=== PATIENT | female | born 1980 | race Hispanic/Latino ===

== ENCOUNTER 2017-12-01 11:30 | Observation (INO) | payer BC ==
[~2017-12-01] VITALS: Ht 160 cm; Wt 66.2 kg
[~2017-12-01 11:30] MED LIST: ATIVAN1 MG PO; BENADRYL25 M1 PO; BENTYL10 MG PO; CARAFATE1 GM/10 ML PO; LIPITOR20 MG PO; LSNP2.5 PO; NEURONTIN300 MG PO; NEXIUM40 MG PO; OLANZAPINE5 MG PO; PANTOPRAZOLE SO40 MG PO; PROMETHAZINE HC25 M1 PO; SYNTHROID125 MCG PO; TOPROL XL25 MG PO; TYLENOL WITH C1 EACH PO; ULTRAM50 MG PO; XOPENEX HFA15 GM INH; ZANAFLEX4 MG PO
[2017-12-01] MEDS ORDERED: SODIUM CHLORIDE 0.9% 1000ML 1,000 ML IV STA ×2 (11:38→15:22)
[2017-12-01] MEDS ORDERED: PROMETHAZINE 12.5MG/ NACL 0.9% 12.5 MG/50 ML BAG IV ONE (11:45)
[2017-12-01 12:31] LABS: BILIRUBIN,URINE 1+ (NEGATIVE); CLARITY,URINE CLOUDY (CLEAR); COLOR,URINE YELLOW (YELLOW); KETONES,URINE TRACE (NEGATIVE); LEUKOCYTE ESTERASE ,URINE NEGATIVE (NEGATIVE); NITRITE,URINE NEGATIVE (NEGATIVE); URINE UROBILINOGEN 0.2 mg/dL (0.2 - 1)
[2017-12-01 12:39] LABS: PROTEIN,URINE DIPSTICK 2+ (NEGATIVE)
[2017-12-01 12:44] LABS: EPITHELIAL CELLS,URINE MODERATE /LPF
[2017-12-01 12:46] LABS: BACTERIA,URINE FEW /HPF
[2017-12-01 12:55] LABS: AMPHETAMINES SCREEN,URINE NEGATIVE (NEGATIVE); BENZODIAZEPINES SCREEN,URINE POSITIVE (NEGATIVE); PHENCYCLIDINE SCREEN,URINE NEGATIVE (NEGATIVE)
[2017-12-01 13:04] LABS: BASOPHILS % 0.3 % (0.0-1.0); EOSINOPHILS % 0.2 % (0.0-6.0); HEMATOCRIT 42.8 % (34.2-44.1); HEMOGLOBIN 14.6 g/dL (12.0-16.0); LYMPHOCYTES # (AUTO) 4.1 (1.0-3.2); LYMPHOCYTES % 29.8 % (18.0-39.1); MEAN CORPUSCULAR HEMOGLOBIN 30.4 pg (28-32); MEAN CORPUSCULAR HGB CONC 34.1 g/dL (31-35); MEAN CORPUSCULAR VOLUME 89.2 fL (81-99); MONOCYTES # (AUTO) 1.4 (0.2-0.8); NEUTROPHILS # (AUTO) 8.1 (2.1-6.9); PLATELET COUNT 397 x10e3/uL (140-360); RED CELL DISTRIBUTION WIDTH 16.9 % (11.7-14.4)
[2017-12-01] MEDS ORDERED: ONDANSETRON HCL INJ 2 MG/ML VIAL IV STA (13:30)
[2017-12-01] MEDS ORDERED: CEFTRIAXONE SOD 1 GM VIAL IM ONE (14:00)
[2017-12-01] MEDS ORDERED: MORPHINE SULFATE 5 MG/ML VIAL IV PRN ×2 (14:00→16:30)
[2017-12-01] MEDS ORDERED: MORPHINE SULFATE 2 MG/ML SYR IV NR ×2 (14:15→16:45)
--- NOTE | 2017-12-01 14:47 | Diagnostic Imaging Report ---
Exam: Head CT without contrast History: Nausea, vomiting, trauma, fall Comparison studies: Brain MRI 08/02/2016. Technique: Axial images were obtained from the skull base to the vertex. Coronal and sagittal images reconstructed from the axial data. Intravenous contrast: None Findings: Scalp: No abnormalities. Bones: No fractures, blastic or lytic lesions. Brain sulci: Appropriate for age. Ventricles: Normal in size. No hydrocephalus. Incidental 1.9 x 2.1 x 2.4 cm (SI x AP x TV) cavum veli interpositi cyst without mass effect. Extra-axial spaces: Mildly prominent retrocerebellar space of CSF density is compatible with an arachnoid cyst. Parenchyma: No abnormal densities. No masses, acute hemorrhage, acute or chronic vascular insults. Sellar/suprasellar region: No abnormalities. Craniocervical junction: Patent foramen magnum. No Chiari one malformation. IMPRESSION: 1. No acute abnormalities. 2. 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 Signed by: Dr. David Javed M.D. on 12/01/2017 2:44 PM
[2017-12-01 15:25] LABS: ALANINE AMINOTRANSFERASE 13 IU/L (0-55); ALBUMIN 4.5 g/dL (3.5-5.0); ALBUMIN/GLOBULIN RATIO 1.3 (0.8-2.0); ALKALINE PHOSPHATASE 74 IU/L (40-150); AMYLASE 61 U/L (25-125); ANION GAP 18.1 mmol/L (8-16); BLOOD UREA NITROGEN 12 mg/dL (7-26); BUN/CREATININE RATIO 17 (6-25); CALCIUM 8.6 mg/dL (8.4-10.2); CARBON DIOXIDE 26 mmol/L (22-29); CHLORIDE 95 mmol/L (98-107); CREATINE KINASE 45 IU/L (29-168); EST GLOMERULAR FILTRATION RATE > 60 ML/MIN (60-); GLUCOSE 97 mg/dL (74-118); LIPASE 36 U/L (8-78); POTASSIUM 3.1 mmol/L (3.5-5.1); SODIUM 136 mmol/L (136-145)
[2017-12-01] MEDS: PROMETHAZINE 12.5MG/ NACL 0.9% 12.5 MG/50 ML BAG IV PRN ×2 (15:45→23:15)
[2017-12-01 15:51] LABS: THYROID STIMULATING HORMONE 2.538 uIU/mL (0.350-4.940); TROPONIN I 0.004 ng/mL (0-0.300)
--- NOTE | 2017-12-01 16:10 | Diagnostic Imaging Report ---
PROCEDURE:X-RAY ABDOMEN - KUB COMPARISON:[facility], CT, CT ABDOMEN/PELVIS W, 09/12/2017, 19:42. INDICATIONS:ABDOMINAL PAIN FINDINGS: Nonobstructive bowel gas pattern with mild amount of retained stool. No dilated, air-filled loops of bowel. No abnormal calcifications. Metallic clips in the pelvis from tubal ligation. No acute bony abnormalities. CONCLUSION: Nonobstructive bowel gas pattern with mild amount of retained stool. Aníbal Curtis M.D. Dictated by: Aníbal Curtis M.D. on 12/01/2017 at 16:19 Electronically approved by: Aníbal Curtis M.D. on 12/01/2017 at 16:19
[2017-12-01] MEDS ORDERED: PROMETHAZINE 12.5MG/ NACL 0.9% 12.5 MG/50 ML BAG IV PRN (16:30)
[2017-12-01] MEDS ORDERED: DIATRIZOATE MEGL/DIATRIZOA SOD 30 ML BTL PO ONE (16:41)
--- NOTE | 2017-12-01 18:16 | Diagnostic Imaging Report ---
PROCEDURE: CT ABDOMEN AND PELVIS WITHOUT CONTRAST TECHNIQUE: The abdomen and pelvis were scanned utilizing a multidetector helical scanner from the diaphragm to the lesser trochanter after the oral administration of water. No IV contrast was administered due to lack of IV access Coronal and sagittal multiplanar reformations were obtained. COMPARISON: [facility], CT, CT ABDOMEN/PELVIS W, 09/12/2017, 19:42. INDICATIONS: ABDOMINAL PAIN, NAUSEA, history of gastric cancer FINDINGS: ABSENCE OF INTRAVENOUS CONTRAST DECREASES SENSITIVITY FOR DETECTION OF FOCAL LESIONS AND VASCULAR PATHOLOGY. LOWER THORAX: Lung bases are clear. HEPATOBILIARY: Borderline low attenuation of the right hepatic lobe, likely representing geographic steatosis. No focal hepatic lesions. No biliary ductal dilatation. Gallbladder is unremarkable. SPLEEN: The spleen is not visualized and likely absent. PANCREAS: No focal masses or ductal dilatation. ADRENALS: No adrenal nodules. KIDNEYS/URETERS: Questionable punctate, nonobstructing calculus in the interpolar region of the left kidney (series 2, image 31). No other renal or any ureteral calculi. No hydronephrosis or obstruction. Stable 9 mm cortical angiomyolipoma in the superior to mid aspect of the right kidney (series 2, image 37). PELVIC ORGANS/BLADDER: Bladder is moderately distended, without focal lesions. Uterus is unremarkable. Bilateral tubal ligation clips. PERITONEUM / RETROPERITONEUM: No free air or fluid. LYMPH NODES: No lymphadenopathy. VESSELS: Unremarkable. GI TRACT: Stable postoperative changes in the stomach fundus and cecum/ascending colon. No bowel dilation or evidence of obstruction. Moderate to large amount of retained stool in the colon, particularly in the descending and sigmoid colon. BONES AND SOFT TISSUES: No acute bony abnormalities. No aggressive lytic lesions. Soft tissues are unremarkable. IMPRESSION: 1. Exam limited by lack of intravenous contrast. No acute abdominopelvic abnormalities, within the limitations of the study. No bowel dilation or evidence of obstruction. 2. Stable postoperative changes in the gastric fundus and ascending colon/cecum. 3. 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 Aníbal Curtis M.D. Dictated by: Aínbal Curtis M.D. on 12/01/2017 at 18:25 Electronically approved by: Aníbal Curtis M.D. on 12/01/2017 at 18:25
[2017-12-01] MEDS: SODIUM CHLORIDE 0.9% 1000ML 1,000 ML IV SCH (18:59)
[2017-12-01] MEDS ORDERED: KLONOPIN0.5 MG PO ×2 (19:45)
[2017-12-01] MEDS ORDERED: KLONOPIN1 MG PO (19:45)
[2017-12-01] MEDS ORDERED: METOPROLOL TARTRATE 25 MG TAB PO ONE (20:00)
[2017-12-01 23:00] VITALS: BP 117/76
[2017-12-01 23:25] VITALS: BP 117/76
[2017-12-01 23:43] VITALS: BP 117/76
[2017-12-02] MEDS ORDERED: PANTOPRAZOLE 40 MG 10ML VIAL IV STA (00:16)
[2017-12-02] MEDS ORDERED: LORAZEPAM 1 MG TAB PO PRN (00:30)
[2017-12-02] MEDS ORDERED: ACETAMINOPHEN/CODEINE 300MG - 30MG TAB PO PRN (00:30)
[2017-12-02] MEDS: HYDROMORPHONE 2MG/ML INJ IV PRN ×5 (00:53→22:29)
[2017-12-02] MEDS: PANTOPRAZOLE INJ 40 MG in SODIUM CHLORIDE 0.9% 50ML 50 ML IV SCH ×5 (01:36→21:52)
[2017-12-02 05:00] VITALS: BP 126/55
[2017-12-02] MEDS ORDERED: PANTOPRAZOLE 40 MG 10ML VIAL ONE (05:45)
[2017-12-02] MEDS: SODIUM CHLORIDE 0.9% 1000ML 1,000 ML IV SCH ×3 (05:54→15:06)
[2017-12-02] MEDS: PROMETHAZINE 12.5MG/ NACL 0.9% 12.5 MG/50 ML BAG IV PRN ×3 (05:55→18:12)
[2017-12-02] MEDS: LEVOTHYROXINE SODIUM 75 MCG TAB PO SCH (05:55)
[2017-12-02 07:01] LABS: BASOPHILS # (AUTO) 0.1 (0.0-0.1); BASOPHILS % 0.4 % (0.0-1.0); EOSINOPHILS # (AUTO) 0.1 (0.0-0.4); EOSINOPHILS % 0.4 % (0.0-6.0); HEMOGLOBIN 12.7 g/dL (12.0-16.0); LYMPHOCYTES % 40.2 % (18.0-39.1); MEAN CORPUSCULAR HEMOGLOBIN 30.5 pg (28-32); MEAN CORPUSCULAR HGB CONC 32.6 g/dL (31-35); MONOCYTES # (AUTO) 1.6 (0.2-0.8); MONOCYTES % 9.4 % (4.4-11.3); NEUTROPHILS # (AUTO) 8.5 (2.1-6.9); NEUTROPHILS % 48.9 % (38.7-80.0); PLATELET COUNT 306 x10e3/uL (140-360); RED BLOOD COUNT 4.17 x10e6/uL (3.6-5.1); RED CELL DISTRIBUTION WIDTH 17.2 % (11.7-14.4)
[2017-12-02 07:23] LABS: ANION GAP 16.9 mmol/L (8-16); BLOOD UREA NITROGEN 7 mg/dL (7-26); BUN/CREATININE RATIO 11 (6-25); CALCIUM 8.3 mg/dL (8.4-10.2); CARBON DIOXIDE 28 mmol/L (22-29); CHLORIDE 97 mmol/L (98-107); CREATININE, SERUM 0.61 mg/dL (0.57-1.11); EST GLOMERULAR FILTRATION RATE > 60 ML/MIN (60-); GLUCOSE 100 mg/dL (74-118); MEAN CORPUSCULAR VOLUME 93.5 fL (81-99); SODIUM 139 mmol/L (136-145)
[2017-12-02 07:24] LABS: POTASSIUM 2.9 mmol/L (3.5-5.1)
[2017-12-02] MEDS: SUCRALFATE 1 GM/10 ML SUSP PO SCH ×3 (07:30→16:30)
[2017-12-02 07:38] VITALS: BP 122/82
[2017-12-02] MEDS: GABAPENTIN 300 MG CAP PO SCH ×3 (08:21→21:00)
[2017-12-02] MEDS: CLONAZEPAM 0.5 MG TAB PO SCH ×2 (08:21→17:50)
[2017-12-02] MEDS: DICYCLOMINE HCL 10 MG CAP PO SCH ×4 (08:21→22:30)
[2017-12-02] MEDS: OLANZAPINE 5 MG TAB PO SCH ×2 (08:22→17:50)
[2017-12-02] MEDS: METOPROLOL SUCCINATE 25 MG TAB XL PO SCH ×2 (08:22→17:50)
[2017-12-02] MEDS: TIZANIDINE HCL 4 MG TAB PO SCH ×3 (08:23→21:00)
[2017-12-02] MEDS ORDERED: POTASSIUM CHLORIDE 20MEQ/100ML 100 ML IV ONE (08:30)
[2017-12-02] MEDS ORDERED: PANTOPRAZOLE SOD 40 MG TABEC PO SCH (09:00)
[2017-12-02] MEDS ORDERED: POTASSIUM CHLORIDE IV SCH (09:30)
[2017-12-02] MEDS ORDERED: SODIUM CHLORIDE 0.9% IV SCH (09:30)
[2017-12-02 11:20] VITALS: BP 128/80
[2017-12-02 12:00] VITALS: BP 128/80
[2017-12-02] MEDS ORDERED: POTASSIUM CHLORIDE 10 MEQ TABCR PO SCH (14:00)
[2017-12-02] MEDS: POTASSIUM CHLORIDE 10 MEQ TABCR PO SCH ×2 (15:05→17:50)
[2017-12-02 15:33] VITALS: BP 139/79
[2017-12-02 20:00] VITALS: BP 102/67
[2017-12-02] MEDS: CLONAZEPAM 1 MG TAB PO SCH (21:00)
[2017-12-02] MEDS: ATORVASTATIN 20 MG TAB PO SCH ×2 (21:00→22:30)
[2017-12-02] MEDS: DIPHENHYDRAMINE HCL 25 MG CAP PO SCH (21:00)
[2017-12-03] VITALS (7 sets, daily range): BP systolic 98–136; BP diastolic 42–86
[2017-12-03] MEDS: SODIUM CHLORIDE 0.9% 1000ML 1,000 ML IV SCH ×3 (00:23→16:33)
[2017-12-03] MEDS: POTASSIUM CHLORIDE 10 MEQ TABCR PO SCH ×2 (01:14→06:24)
[2017-12-03] MEDS: PROMETHAZINE 12.5MG/ NACL 0.9% 12.5 MG/50 ML BAG IV PRN ×2 (01:23→07:19)
[2017-12-03] MEDS: HYDROMORPHONE 2MG/ML INJ IV PRN ×3 (02:43→10:45)
[2017-12-03] MEDS: PANTOPRAZOLE INJ 40 MG in SODIUM CHLORIDE 0.9% 50ML 50 ML IV SCH ×5 (04:25→21:30)
[2017-12-03] MEDS: LEVOTHYROXINE SODIUM 75 MCG TAB PO SCH (06:24)
[2017-12-03 06:48] LABS: BASOPHILS % 0.3 % (0.0-1.0); EOSINOPHILS # (AUTO) 0.3 (0.0-0.4); EOSINOPHILS % 1.7 % (0.0-6.0); HEMATOCRIT 31.8 % (34.2-44.1); HEMOGLOBIN 10.3 g/dL (12.0-16.0); LYMPHOCYTES # (AUTO) 4.2 (1.0-3.2); LYMPHOCYTES % 28.4 % (18.0-39.1); MEAN CORPUSCULAR HEMOGLOBIN 30.2 pg (28-32); MEAN CORPUSCULAR HGB CONC 32.4 g/dL (31-35); MEAN CORPUSCULAR VOLUME 93.3 fL (81-99); MONOCYTES # (AUTO) 1.3 (0.2-0.8); MONOCYTES % 8.9 % (4.4-11.3); NEUTROPHILS # (AUTO) 8.9 (2.1-6.9); NEUTROPHILS % 60.1 % (38.7-80.0); PLATELET COUNT 308 x10e3/uL (140-360); RED BLOOD COUNT 3.41 x10e6/uL (3.6-5.1); RED CELL DISTRIBUTION WIDTH 17.7 % (11.7-14.4)
[2017-12-03 07:12] LABS: ANION GAP 13.1 mmol/L (8-16); BLOOD UREA NITROGEN < 5 mg/dL (7-26); CARBON DIOXIDE 26 mmol/L (22-29); CHLORIDE 103 mmol/L (98-107); CREATININE, SERUM 0.58 mg/dL (0.57-1.11); EST GLOMERULAR FILTRATION RATE > 60 ML/MIN (60-); GLUCOSE 100 mg/dL (74-118); POTASSIUM 3.1 mmol/L (3.5-5.1); SODIUM 139 mmol/L (136-145)
[2017-12-03 07:16] LABS: BILIRUBIN,URINE NEGATIVE (NEGATIVE); CLARITY,URINE CLEAR (CLEAR); COLOR,URINE YELLOW (YELLOW); KETONES,URINE NEGATIVE (NEGATIVE); LEUKOCYTE ESTERASE ,URINE NEGATIVE (NEGATIVE); NITRITE,URINE NEGATIVE (NEGATIVE); PROTEIN,URINE DIPSTICK NEGATIVE (NEGATIVE); URINE UROBILINOGEN 0.2 mg/dL (0.2 - 1)
[2017-12-03 07:21] LABS: BUN/CREATININE RATIO 9 (6-25)
[2017-12-03 07:51] LABS: BACTERIA,URINE FEW /HPF; EPITHELIAL CELLS,URINE FEW /LPF; WBC,URINE (MAN) 0-5 /HPF (0-5)
[2017-12-03] MEDS: SUCRALFATE 1 GM/10 ML SUSP PO SCH ×3 (08:37→16:25)
[2017-12-03] MEDS: DICYCLOMINE HCL 10 MG CAP PO SCH ×3 (08:37→21:00)
[2017-12-03] MEDS: GABAPENTIN 300 MG CAP PO SCH ×3 (08:37→21:00)
[2017-12-03] MEDS: CLONAZEPAM 0.5 MG TAB PO SCH ×2 (08:37→17:00)
[2017-12-03] MEDS: OLANZAPINE 5 MG TAB PO SCH ×2 (08:38→17:41)
[2017-12-03] MEDS: METOPROLOL SUCCINATE 25 MG TAB XL PO SCH ×2 (08:38→17:00)
[2017-12-03] MEDS ORDERED: COLLAGENASE OINTMENT 30 GM TUBE TP SCH (09:00)
[2017-12-03] MEDS: TIZANIDINE HCL 4 MG TAB PO SCH ×3 (10:18→21:01)
[2017-12-03] MEDS ORDERED: HYDROMORPHONE 1MG/1ML INJ IV PRN (13:00)
[2017-12-03] MEDS ORDERED: POTASSIUM CHLORIDE 20 MEQ TAB CR PO NR ×2 (13:30→15:00)
[2017-12-03] MEDS ORDERED: HYDROMORPHONE 2MG/ML INJ IV PRN (13:30)
[2017-12-03] MEDS: DIPHENHYDRAMINE HCL 25 MG CAP PO SCH (21:00)
[2017-12-03] MEDS: CLONAZEPAM 1 MG TAB PO SCH (21:00)
[2017-12-03] MEDS: ATORVASTATIN 20 MG TAB PO SCH (21:01)
[2017-12-04] VITALS: BP 101/56
[2017-12-04] MEDS: PANTOPRAZOLE INJ 40 MG in SODIUM CHLORIDE 0.9% 50ML 50 ML IV SCH (02:30)
[2017-12-04 06:14] LABS: BASOPHILS # (AUTO) 0.1 (0.0-0.1); BASOPHILS % 0.6 % (0.0-1.0); EOSINOPHILS # (AUTO) 0.6 (0.0-0.4); EOSINOPHILS % 4.2 % (0.0-6.0); HEMATOCRIT 38.1 % (34.2-44.1); LYMPHOCYTES # (AUTO) 6.8 (1.0-3.2); LYMPHOCYTES % 49.7 % (18.0-39.1); MEAN CORPUSCULAR HEMOGLOBIN 30.1 pg (28-32); MEAN CORPUSCULAR HGB CONC 31.5 g/dL (31-35); MEAN CORPUSCULAR VOLUME 95.5 fL (81-99); MONOCYTES # (AUTO) 1.1 (0.2-0.8); NEUTROPHILS # (AUTO) 5.1 (2.1-6.9); PLATELET COUNT 312 x10e3/uL (140-360); RED BLOOD COUNT 3.99 x10e6/uL (3.6-5.1)
[2017-12-04] MEDS: LEVOTHYROXINE SODIUM 75 MCG TAB PO SCH (06:29)
[2017-12-04] MEDS: SUCRALFATE 1 GM/10 ML SUSP PO SCH (07:30)
[2017-12-04 08:00] VITALS: BP 139/85
[2017-12-04 09:43] LABS: ANISOCYTOSIS SLIGHT; EOSINOPHILS % (MANUAL) 3 % (0-7); LYMPHOCYTES % (MANUAL) 47 % (19-48); MONOCYTES % (MANUAL) 7 % (3.4-9.0); NEUTROPHILS % (MANUAL) 43 % (40-74); PLATELET ESTIMATE ADEQUATE; PLATELET MORPHOLOGY COMMENT NORMAL; RBC MORPHOLOGY COMMENT NORMAL
== END 2017-12-04 08:14 | disposition home or self-care (01) ==
LOC: ER 11:30 → ERHOLD 20:22 → IMCU 21:42
DX: K52.9 Noninfective gastroenteritis and colitis, unspecified (principal); E86.0 Dehydration; R00.0 Tachycardia, unspecified; Z85.020 Personal history of malignant carcinoid tumor of stomach; Z85.71 Personal history of Hodgkin lymphoma; E03.9 Hypothyroidism, unspecified; J45.909 Unspecified asthma, uncomplicated; E87.6 Hypokalemia; Z88.1 Allergy status to other antibiotic agents; Z88.8 Allergy status to other drugs, medicaments and biological substances; Z88.2 Allergy status to sulfonamides
CPT/HCPCS: 36415 ×4; 70450; 74000; 74176; 80048 ×2; 80053; 80307; 81001 ×2; 82150; 82550; 82553; 83690; 83880; 84443; 84484; 84702; 85025 ×4; 87086 ×2; 93005; 96360; 96374; 97602; 99284; G0378 ×4; J0696; J1170 ×2; J2270; J2550 ×3; J3480; J7030 ×3; J7050; 74018

== ENCOUNTER 2017-12-08 07:58 | Observation (INO) | payer BC ==
[~2017-12-08] VITALS: Ht 160 cm; Wt 64.0 kg
[~2017-12-08 07:58] MED LIST changes: +KLONOPIN0.5 MG PO; +KLONOPIN1 MG PO
--- OUTSIDE RECORDS SUMMARY | 2017-12-08 08:00 | XMS REPORT ---
[facility] Address Unknown Phone Unavailable Care Team Providers Care Graphics Manager Name Role Phone SONNY SCHRADER Unavailable Unavailable OSORIOCHARLES CHISHOLM Unavailable Unavailable Problems This patient has no known problems. Allergies, Adverse Reactions, Alerts This patient has no known allergies or adverse reactions. Medications This patient has no known medications. Results Test Description Test Time Test Comments Text Results Atomic Results Result Comments CT ABDOMEN/PELVIS WO [place] [address] Patient Name: TEAGAN CARDOSO MR #: [id number] : 1980 Age/Sex: 37/F Req #: [id number] Adm Physician: Ordered by: GUS BATEMAN IMAGERY ANALYST Report # : [id number] Location: ER Room/Bed: Procedure: [id number] CT/CT ABDOMEN/PELVIS WO Exam Date: Exam Time : REPORT STATUS: Signed PROCEDURE: CT ABDOMEN AND PELVIS WITHOUT CONTRAST TECHNIQUE: The abdomen and pelvis were scanned utilizing a multidetector helical scanner from the diaphragm to the lesser trochanter after the oral administration of water. No IV contrast was administered due to lack of IV access Coronal and sagittal multiplanar reformations were obtained. COMPARISON: [facility], CT, CT ABDOMEN/PELVIS W, 09/12/2017, 19:42. INDICATIONS: ABDOMINAL PAIN, NAUSEA, history of gastric cancer FINDINGS: ABSENCE OF INTRAVENOUS CONTRAST DECREASES SENSITIVITY FOR DETECTION OF FOCAL LESIONS AND VASCULAR PATHOLOGY. LOWER THORAX: Lung bases are clear. HEPATOBILIARY: Borderline low attenuation of the right hepatic lobe, likely representing geographic steatosis. No focal hepatic lesions. No biliary ductal dilatation. Gallbladder is unremarkable. SPLEEN: The spleen is not visualized and likely absent. PANCREAS: No focal masses or ductal dilatation. ADRENALS: No adrenal nodules. KIDNEYS/URETERS: Questionable punctate, nonobstructing calculus in the interpolar region of the left kidney (series 2, image 31). No other renal or any ureteral calculi. No hydronephrosis or obstruction. Stable 9 mm cortical angiomyolipoma in the superior to mid aspect of the right kidney (series 2, image 37). PELVIC ORGANS/BLADDER: Bladder is moderately distended, without focal lesions. Uterus is unremarkable. Bilateral tubal ligation clips. PERITONEUM / RETROPERITONEUM: No free air or fluid. LYMPH NODES: No lymphadenopathy. VESSELS: Unremarkable. GI TRACT: Stable postoperative changes in the stomach fundus and cecum/ ascending colon. No bowel dilation or evidence of obstruction. Moderate to large amount of retained stool in the colon, particularly in the descending and sigmoid colon. BONES AND SOFT TISSUES: No acute bony abnormalities. No aggressive lytic lesions. Soft tissues are unremarkable. IMPRESSION : 1. Exam limited by lack of intravenous contrast. No acute abdominopelvic abnormalities, within the limitations of the study. No bowel dilation or evidence of obstruction. 2. Stable postoperative changes in the gastric fundus and ascending colon/cecum. 3. 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 Aníbal Figueroa M.D. Dictated by: Aníbal Figueroa M.D. on 12/01/2017 at 18:25 Electronically approved by: Aníbal Figueroa M.D. on 12/01/2017 at 18:25 Dictated By: ANÍBAL FIGUEROA MD 24 Transcribed By: EMI on 12/01/171824 COPY TO: GUS BATEMAN IMAGERY ANALYST ABDOMEN-1[facility] ([place] [address] Patient Name: TEAGAN CARDOSO MR #: [id number] : 1980 Age/Sex: 37/F Req #: [id number] Adm Physician: Ordered by: GUS BATEMAN IMAGERY ANALYST Report # : [id number] Location: ER Room/Bed: Procedure: [id number] -[id number] DX/ABDOMEN-1VIEW (KUB) Exam Date: 12/01/17 Exam Time: 1530 REPORT STATUS: Signed PROCEDURE: X-RAY ABDOMEN - KUB COMPARISON: [facility], CT, CT ABDOMEN/PELVIS W, 2016, 19:42. INDICATIONS: ABDOMINAL PAIN FINDINGS: Nonobstructive bowel gas pattern with mild amount of retained stool. No dilated, air-filled loops of bowel. No abnormal calcifications. Metallic clips in the pelvis from tubal ligation. No acute bony abnormalities. CONCLUSION: Nonobstructive bowel gas pattern with mild amount of retained stool. Aníbal Figueroa M.D. Dictated by: Aníbal Figueroa M.D. on 12/01/2017 at 16:19 Electronically approved by: Aníbal Figueroa M.D. on 12/01/2017 at 16:19 Dictated By: ANÍBAL FIGUEROA MD 18 Transcribed By: EMI on 12/01/17 1619 COPY TO: GUS BATEMAN IMAGERY ANALYST CT BRAIN WO [place] [address] Patient Name: TEAGAN CARDOSO MR #: [id number] : 1980 Age/Sex: 37/F Req #: [id number] Adm Physician: Ordered by: GUS BATEMAN IMAGERY ANALYST Report #: [id number] Location: ER Room/Bed: Procedure: [id number] CT/CT BRAIN WO Exam Date: 12/01/17 Exam Time: 1420 REPORT STATUS: Signed Exam: Head CT without contrast History: Nausea , vomiting, trauma, fall Comparison studies: Brain MRI 08/02/2016. Technique: Axial images were obtained from the skull base to the vertex. Coronal and sagittal images reconstructed from the axial data. Intravenous contrast: None Findings: Scalp: No abnormalities. Bones: No fractures, blastic or lytic lesions. Brain sulci: Appropriate for age. Ventricles: Normal in size. No hydrocephalus. Incidental 1.9 x 2.1 x 2.4 cm (SI x AP x TV) cavum veli interpositi cyst without mass effect. Extra- axial spaces: Mildly prominent retrocerebellar space of CSF density is compatible with an arachnoid cyst. Parenchyma: No abnormal densities. No masses, acute hemorrhage, acute or chronic vascular insults. Sellar/suprasellar region: No abnormalities. Craniocervical junction: Patent foramen magnum. No Chiari one malformation. IMPRESSION: 1. No acute abnormalities. 2. 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 Signed by: Dr. Hermelinda Alegre M.D. on 12/01/2017 2:44 PM Dictated By: HERMELINDA ALEGRE MD 1444 Transcribed By: KARMA on 12/01/17 1447 COPY TO: GUS BATEMAN NP CT ABDOMEN/PELVIS [place] [address] Patient Name: TEAGAN CARDOSO MR #: [id number] : 1980 Age/Sex: 37/F Req #: [id number] Adm Physician: CHARLES OSORIO MD Ordered by: DAHLIA MURRAY MD Report #: [id number] Location: MED/SURG Room/Bed: [facility] ____ Procedure: [id number] CT/CT ABDOMEN/PELVIS W Exam Date: 09/12/17 Exam Time: 1999 REPORT STATUS: Signed EXAM: CT Abdomen and Pelvis WITH contrast INDICATION: Abdominal pain, nausea, vomiting, history of gastric cancer COMPARISON: 05/24/2016 TECHNIQUE: Abdomen and pelvis were scanned utilizing a multidetector helical scanner from the lung base to the pubic symphysis after administration of IV contrast. Coronal and sagittal reformations were obtained. Routine protocol was performed. Scan was performed when during portal venous phase. IV CONTRAST: 100 mL of Isovue-300 ORAL CONTRAST: None RADIATION DOSE: Total DLP: 246.32 mGy*cm Estimated effective dose: (DLP x 0.015 x size factor) mSv COMPLICATIONS: None FINDINGS: LINES and TUBES: None. LOWER THORAX: Unremarkable HEPATOBILIARY: No focal hepatic lesions. No biliary ductal dilation. GALLBLADDER: No radio-opaque stones or sludge. No wall thickening. SPLEEN : No splenomegaly. PANCREAS: No focal masses or ductal dilatation. ADRENALS: No adrenal nodules KIDNEYS/URETERS: Kidneys enhance symmetrically. No hydronephrosis. No cystic or solid mass lesions. No stones. GI TRACT: No abnormal distention, wall thickening, or evidence of bowel obstruction. Postsurgical changes noted at the gastric fundus as well as the right colon at the cecum. Appendix is not clearly identified. There is however no fat stranding or adenopathy in the right lower quadrant to suggest appendicitis. PELVIC ORGANS/BLADDER: Unremarkable. LYMPH NODES: No lymphadenopathy. VESSELS: Unremarkable. PERITONEUM / RETROPERITONEUM: No free air or fluid. BONES: Unremarkable. SOFT TISSUES: Unremarkable. IMPRESSION: 1. No evidence of residual, recurrent disease or metastasis. 2. Unobstructive bowel gas pattern Signed by: Dr. Nigel Townsend M.D. on 09/12/2017 9:09 PM Dictated By: NIGEL MICHAEL MD 08 Transcribed By: KARMA on 09/12/172108 COPY TO: DAHLIA MURRAY MD CHEST 2 VIEWS [place] [address] Patient Name: TEAGAN CARDOSO MR #: [id number] : 1980 Age/Sex: 37/F Req #: [id number] Adm Physician: CHARLES OSORIO MD Ordered by: ANNY FALLON MD Report #: [id number] Location: MED/SURG Room/Bed: [facility] _ Procedure: [id number] DX/CHEST 2 VIEWS Exam Date: 09/12/17 Exam Time: 1250 REPORT STATUS: Signed EXAM: XR CHEST 2 VIEWS DATE: 09/12/2017 11:36 AM INDICATION: Pneumonia COMPARISON : 09/08/2017 FINDINGS: Lines and Tubes: Right PICC with tip overlying distal SVC. Heart and Mediastinum: Stable cardiomegaly. Pulmonary arteries prominent. Calcified left hilar lymph nodes. Chain suture overlies lingula. Lungs and Pleura: Calcification overlies left lung base. Ill-defined opacities in the lung bases could represent atelectasis, edema, or pneumonia. Bones and Soft Tissues: No acute findings. IMPRESSION: 1. Overall stable exam. Signed by: Dr. Frantz Lucia MD on 09/12/2017 1:30 PM Dictated By: FRANTZ LUCIA MD 29 Transcribed By: KARMA on 09/12/171329 COPY TO: ANNY FALLON MD CHEST 2 VIEWS [facility] [address], [place] [address] Patient Name: TEAGAN CARDOSO MR #: [id number] : 1980 Age/Sex: 37/F Req #: [id number] Adm Physician: CHARLES OSORIO MD Ordered by: TARAS ENGLISH MD Report #: [id number] Location: MED/SURG2 Room/Bed: [facility] ___ Procedure: [id number] DX/CHEST 2 VIEWS Exam Date: Exam Time: REPORT STATUS: Signed EXAMINATION: CHEST 2 VIEWS INDICATION: Possible right lower lobe pneumonia. COMPARISON: 03/11/2016 FINDINGS: TUBES and LINES: Right upper extremity PICC line with distal tip at the right atrium. LUNGS: Lungs are well inflated. Large calcified granuloma noted in the left lung base. Segmental resection of the left lung noted just lateral to the cardiac silhouette. There is no evidence of pneumonia or pulmonary edema. PLEURA : No pleural effusion or pneumothorax. HEART AND MEDIASTINUM: The cardiomediastinal silhouette is unremarkable. There are atherosclerotic calcifications within the aorta. BONES AND SOFT TISSUES: No acute osseous lesion. Soft tissues are unremarkable. UPPER ABDOMEN: No free air under the diaphragm. IMPRESSION: No acute thoracic abnormality. Signed by: Dr. Nigel Townsend M.D. on 09/08/2017 4:50 AM Dictated By: NIGEL MICHAEL MD 045 COPY TO: TARAS ENGLISH MD CHEST XRAY LINE PLACEMENT [facility] [address] [place] [address] Patient Name: TEAGAN CARDOSO MR #: [id number] : 1980 Age/Sex: 37/F Req #: [id number] Adm Physician: CHARLES OSORIO MD Ordered by: CHARLES OSORIO MD Report #: [id number] Location: [facility]/SURG2 Room/Bed: [facility] Procedure: [id number] DX/CHEST XRAY LINE PLACEMENT Exam Date: Exam Time: REPORT STATUS: Signed EXAMINATION: CHEST XRAY LINE PLACEMENT INDICATION: Repositioning of PICC line COMPARISON: 03/11/2016 FINDINGS: TUBES and LINES: Right upper extremity PICC line with distal tip at the right atriocaval junction. LUNGS: Lungs are well inflated. Large calcified granuloma noted in the left lung base. Segmental resection of the left lung noted just lateral to the cardiac silhouette. There is no evidence of pneumonia or pulmonary edema. PLEURA: No pleural effusion or pneumothorax. HEART AND MEDIASTINUM: The cardiomediastinal silhouette is unremarkable. There are atherosclerotic calcifications within the aorta. BONES AND SOFT TISSUES: No acute osseous lesion. Soft tissues are unremarkable. UPPER ABDOMEN: No free air under the diaphragm. IMPRESSION: No acute thoracic abnormality. Repositioning of right upper extremity PICC line at the atriocaval junction Signed by: Dr. Nigel Townsend M.D. on 09/08/2017 4:53 AM Dictated By: NIGEL MICHAEL MD Transcribed By: KARMA on 09/08/170 COPY TO: CHARLES OSORIO MD CT CHEST [facility] [address] [place] [address] Patient Name: TEAGAN CARDOSO MR #: [id number] : 1980 Age/Sex: 37/F Req #: [id number] [facility] Physician: Ordered by: TARAS ENGLISH MD Report #: [id number] Location: ER Room/Bed: Procedure: [id number] CT/CT CHEST WO Exam Date: 09/07/17 Exam Time: 1753 REPORT STATUS: Signed EXAM: CT Chest WITHOUT contrast 09/07/2017 4:51 PM INDICATION: Unexplained hypoxemia. Chest pain. COMPARISON: 12/01/2014. TECHNIQUE: Chest was scanned utilizing a multidetector helical scanner from the lung apex through the level of the adrenal glands without administration of IV contrast. Absence of intravenous contrast decreases sensitivity for detection of lymphadenopathy and vascular pathology. Coronal and sagittal reformations were obtained. Routine protocol was performed. IV CONTRAST: None RADIATION DOSE: Total DLP: 421.35 mGy*cm Estimated effective dose: (DLP x 0.014 x size factor) mSv COMPLICATIONS: None FINDINGS: LINES/ TUBES: None. LUNGS AND AIRWAYS: Patchy and ill-defined nodular groundglass densities throughout the right middle and lower lobes, with more focal patchy density in the right lower lobe medially as seen on coronal images 50 and 51. There is a 7 mm groundglass nodule in the right upper lobe laterally on coronal image 51. There is a 4 mm pleural-based nodule in the left lung base on coronal images 61. There is a 6.2 mm groundglass nodule in the left lower lobe posteriorly on coronal image 75. Metallic densities in the lingula again observed, most suggestive of prior lung biopsy or wedge resection. PLEURA: Small right and trace left pleural effusions. HEART AND MEDIASTINUM: The thyroid gland is normal. 2.1 cm calcification abutting the left aspect of the pulmonary trunk, possibly calcified lymph node, stable. No mediastinal, hilar or axillary lymphadenopathy. The heart is normal in size.. There is no pericardial effusion. Atherosclerotic calcifications of the thoracic aorta without aneurysmal dilatation. Mild multivessel coronary artery calcification. UPPER ABDOMEN: Limited non-contrast views of the upper abdomen show prior gastric surgery. Mild thickening of the left adrenal gland with punctate calcification. The adrenal glands are normal. BONES: The visualized bony thorax is within normal limits. SOFT TISSUES: Surgical clips in the lower left midneck. IMPRESSION: 1. Ill-defined nodular groundglass densities throughout the right middle and lower lobes are nonspecific, however, may reflect pneumonitis. 2. Small right and trace left pleural effusions. 3. Right upper and left lower lobe groundglass nodules. Consider follow-up CT chest nodule protocol in 12 months to document resolution/stability. Signed by: Dr. Shankar Noriega M.D. on 2016 6:42 PM Dictated By: ANJALI NORIEGA MD, MD 41 Transcribed By: KARMA on 09/07/171841 COPY TO: TARAS ENGLISH MD CHEST SINGLE (PORTABLE) [place] [address] Patient Name: TEAGAN CARDOSO MR #: [id number] : 1980 Age/Sex: 37/F Req #: [id number] Adm Physician: Ordered by: TARAS ENGLISH MD Report #: [id number] Location: ER Room/Bed: Procedure: [id number] DX/CHEST SINGLE (PORTABLE) Exam Date: 09/07/17 Exam Time: 0900 REPORT STATUS: Signed PROCEDURE: CHEST SINGLE (PORTABLE) COMPARISON: 08/22/2016. INDICATIONS: EPIGASTRIC PAIN FINDINGS: The lungs are well-inflated. No focal airspace consolidation, pleural effusion, or pneumothorax. Postsurgical changes of left hemithorax include radiopaque suture material and volume loss. Calcified left hilar lymph node and dystrophic calcification projecting over the left lung base/left upper quadrant of the abdomen are unchanged. Right hemithorax is clear. Stable cardiomediastinal contour. The regional skeletal structures are intact. CONCLUSION: No acute cardiopulmonary abnormality. Interval removal of right upper extremity PICC with otherwise stable appearance of the chest relative to 08/22/2016. Dictated by: Hermelinda Jasmine M.D. on 09/07/2017 at 9:44 Electronically approved by: Hermelinda Jasmine M.D. on 09/07/2017 at 9:44 Dictated By : HERMELINDA JASMINE MD Transcribed By: EMI on 09/07/17943 COPY TO: TARAS ENGLISH MD
--- OUTSIDE RECORDS SUMMARY | 2017-12-08 08:00 | XMS REPORT | Continuity of Care Document ---
Author Author [facility] Organization [facility] Address [address] [place] [address] Phone Unavailable Care Team Providers Care Senior Manager Quality Assurance Name Role Phone CHARLES OSORIO MD PCP Insurance Providers Guarantor RdBrigitte Address [address] [place] [address] Email [facility] Policy Number [id number] Subscriber's Name Nj Cardoso Relationship 01 Group Number [id number] Group Name [facility] Effective Date 17 Advance Directives Directive Response Recorded Date/Time Does the patient have an advance directive? No 12/01/17 11:54pm If yes, is advance directive on file with [facility]? No 12/01/17 11:54pm If not on file with [facility] will patient provide a copy? No 12/01/17 11:54pm Do you have a Directive to Physician? No 12/01/17 12:25pm Do you have a Medical Power of Mill Tender Second Operator? No 12/01/17 12:25pm Do you have an out of hospital Do Not Resuscitate Order? No 12/01/17 12:25pm Do you have any special needs we should be aware of? No 12/01/17 12:25pm Do you have a support person here with you today? Yes 12/01/17 12:25pm Did patient receive Notice of Privacy Practices? Yes 12/01/17 12:25pm Did patient receive patient rights and responsibilities? Yes 12/01/17 12:25pm Chief Complaint and Reason for Visit Chief Complaint DEHYDRATION, DIASTOLIC HEART FAILURE, TACHYCARDIA Reason for Visit Headache Problems Medical Problem Onset Date Status Anemia 11/30/2014 Acute Ankle sprain Unknown Acute Coronary artery calcification of mentasta artery 12/03/2014 Acute Dehydration Unknown Diastolic heart failure Unknown Headache Unknown Acute Symptomatic anemia 11/30/2014 Acute Tachycardia Unknown Urinary tract infection Unknown Acute Vomiting Unknown Medications Current Home Medications Medication Dose Units Route Directions Days Qty Instructions Start Date Acetaminophen With Codeine (Tylenol With Codeine #3 Tablet) 1 Each Tablet 300 Mg Oral Every 6 Hours Ac And Hs as needed for Po 10 Days 12/05/14 Atorvastatin Calcium (Lipitor) 20 Mg Tablet 80 Mg Oral Bedtime 30 Cap 12/05/14 Clonazepam (Klonopin) 0.5 Mg Tablet 0.5 Mg Oral Every Morning Clonazepam (Klonopin) 0.5 Mg Tablet 0.5 Mg Oral Daily At 1700 Clonazepam (Klonopin) 1 Mg Tablet 1.5 Mg Oral Bedtime Dicyclomine Hcl (Bentyl) 10 Mg Capsule 20 Mg Oral Three Times A Day Diphenhydramine Hcl (Benadryl) 25 Mg Capsule 50 Mg Oral Bedtime Gabapentin (Neurontin) 300 Mg Capsule 600 Mg Oral Three Times A Day Levalbuterol Tartrate (Xopenex Hfa) 15 Gm Hfa.aer.ad Inhalation As Needed Levothyroxine Sodium (Synthroid) 125 Mcg Tab 150 Mcg Oral Daily 30 Tab Lorazepam (Ativan) 1 Mg Tablet 1 Mg Oral Three Times A Day as needed for Anxiety Metoprolol Succinate (Toprol Xl) 25 Mg Tab.er.24h 25 Mg Oral Twice A Day 30 Tab Olanzapine 5 Mg Tablet 5 Mg Oral Twice A Day 30 Tab Pantoprazole Sodium (Protonix) 40 Mg Tablet.dr 40 Mg Oral Twice A Day Promethazine Hcl 25 Mg Tablet 25 Mg Oral Every 6 Hours as needed for Nausea And Vomiting Sucralfate (Carafate) 1 Gm/10 Ml Oral.susp 1 Gm Oral Before Meals Tizanidine Hcl (Zanaflex) 4 Mg Tablet 4 Mg Oral Three Times A Day Past Home Medications Medication Directions Ordered Status Diphenhydramine Hcl (Benadryl) 25 Mg Capsule, 25 Mg Oral Daily Discontinued Esomeprazole Magnesium (Nexium) 40 Mg Capsule.dr, 40 Mg Oral Daily At 1700 Discontinued Lsnp2.5 2.5 Mg Tab, 2.5 Mg Oral Bedtime 12/05/14 Discontinued Tramadol Hcl (Ultram) 50 Mg Tablet, 50 Mg Oral Three Times A Day as needed for Pain Discontinued Tramadol Hcl (Ultram) 50 Mg Tablet, 50 Mg Oral Every 8 Hours as needed for Abdominal Pain Discontinued Social History Social History Problem Response Recorded Date/Time Onset Date Status Hx Psychiatric Problems No 12/01/2017 11:54pm Not Applicable Not Applicable Hx Eating Disorder No 12/01/2017 11:54pm Not Applicable Not Applicable Hx Substance Use Disorder No 12/01/2017 11:54pm Not Applicable Not Applicable Hx Depression No 12/01/2017 11:54pm Not Applicable Not Applicable Hx Alcohol Use No 12/01/2017 11:54pm Not Applicable Not Applicable Hx Substance Use Treatment No 12/01/2017 11:54pm Not Applicable Not Applicable Hx Physical Abuse No 12/01/2017 11:54pm Not Applicable Not Applicable Smoking Status Start Date Stop Date Never Smoker Hospital Discharge Instructions No hospital discharge instruction information available. Plan of Care Discharge Date 12/04/17 8:14am Disposition HOME, SELF-CARE Instructions/Education Provided Dehydration - Adult Vomiting - Adult Prescriptions See Medication Section Additional Instructions/Education TAKE MEDICATION ORDERED FOLLOW UP WITH PCP ON Thursday12/07/17 NEED BLOOD WORK Functional Status Query Response Date Recorded Assistive Devices None December 01, 2017 11:43pm Ambulation Ability Minimum Assistance December 01, 2017 11:43pm Toileting Ability Minimum Assistance December 01, 2017 11:43pm Allergies, Adverse Reactions, Alerts Allergen Type Severity Reaction Status Last Updated Sulfa (Sulfonamide Antibiotics) Allergy Intermediate DECREASED PLATELETS Active 09/07/17 Prochlorperazine Allergy Intermediate TACHYCARDIA Active 09/07/17 Clindamycin Allergy Mild Active 09/08/17 Paroxetine Allergy Unknown Active 09/07/17 Sertraline Allergy Unknown Active 09/07/17 Cyclobenzaprine Allergy Unknown Active 09/07/17 Metoclopramide Allergy Mild Hives, rash, anxiety Active 09/07/17 Ondansetron Allergy Intermediate TACHYCARDIA Active 09/07/17 Levofloxacin Allergy Intermediate TACHYCARDIA Active 09/07/17 Immunizations No immunization information available. Vital Signs Acute Vital Signs Vital Response Date/Time Temperature (Fahrenheit) 97.2 degrees F (97.6 - 99.5) 12/04/2017 12:00am Pulse Pulse Rate (adult) 94 bpm (60 - 90) 12/04/2017 12:00am Respiratory Rate 17 bpm (12 - 24) 12/04/2017 12:00am Blood Pressure 101/56 mm Hg 12/04/2017 12:00am Height 5 ft 3 in 12/01/2017 11:34am Weight 146 lb 12/03/2017 12:27am Body Mass Index 25.9 kg/m^2 12/03/2017 12:27am Results Laboratory Results Test Name Result Units Flags Reference Collection Date/Time Result Date/ Time Comments Differential Total Cells Counted 100 09/12/2017 6:30am 09/12/2017 8 :32am Neutrophils % (Manual) 69 % 40-74 09/12/2017 6:30am 09/12/2017 8:32am Band Neutrophils % 2 % 09/12/2017 6:30am 09/12/2017 8:32am Lymphocytes % (Manual) 24 % 19-48 09/12/2017 6:30am 09/12/2017 8:32am Monocytes % (Manual) 4 % 3.4-9.0 09/12/2017 6:30am 09/12/2017 8:32am Basophils % (Manual) 1 % 0-1.5 09/12/2017 6:30am 09/12/2017 8:32am Platelet Estimate MARKEDLY INCREASED 09/12/2017 6:30am 09/12/2017 8 :32am Platelet Morphology Comment FEW LARGE 09/12/2017 6:30am 09/12/2017 8:32am Anisocytosis MODERATE 09/12/2017 6:30am 09/12/2017 8:32am Red Cell Morphology Comment ABNORMAL 09/12/2017 6:30am 09/12/2017 8 :32am Percent Reticulocyte Count 2.2 % 0.8-2.2 09/09/2017 5:50am 09/09/2017 6 :01am Prothrombin Time 12.3 seconds 11.9-14.5 09/07/2017 2:55pm 09/07/2017 3: 22pm Prothromb Time International Ratio 0.87 09/07/2017 2:55pm 2016 3:22pm Oral Anticoagulant Therapy INR Values: 1. Low Intensity Therapy 1.5 - 2.0 2. Moderate Intensity Therapy 2.0 - 3.0 3. High Intensity Therapy(1) 2.5 - 3.5 4. High Intensity Therapy(2) 3.0 - 4.0 5. Panic Value INR > 5.0 Activated Partial Thromboplast Time 29.5 seconds 23.8-35.5 09/07/2017 2: 55pm 09/07/2017 3:22pm D-Dimer Quantitative (PE/DVT) 0.45 ug/mLFEU 0.00-0.45 09/07/2017 2:55pm 09/07/2017 3:25pm As with all in vitro diagnostic tests, the test results should be interpreted by the physician in conjunction with clinical findings and other test results. Test results are reported in NEW D-dimer units(ug/mLFEU). Urine Amorphous Sediment RARE FEW 09/07/2017 8:45am 09/07/2017 9: 33am Urine Test NEGATIVE NEGATIVE 09/07/2017 8:45am 09/07/2017 5 :11pm Hemoglobin A1c Percent 5.9 % 4.0-7.0 09/08/2017 1:35pm 09/08/2017 1: 49pm Magnesium Level 2.6 MG/DL H 1.3-2.1 09/11/2017 9:44pm 09/11/2017 10: 24pm Iron Level 14 ug/dL L 50-170 09/09/2017 5:50am 09/09/2017 6:29am Total Iron Binding Capacity 498 ug/dL H 261-478 09/09/2017 5:50am 2016 6:29am Percent Iron Saturation 3 % L 15-50 09/09/2017 5:50am 09/09/2017 6:29am Transferrin 356 mg/dL 180-382 09/09/2017 5:50am 09/09/2017 6:29am Ferritin 12.97 ng/mL 4.63-204.00 09/09/2017 5:50am 09/09/2017 6:53am Vitamin B12 Level 315 pg/mL 213-816 09/09/2017 5:50am 09/09/2017 7: 05am Folate 15.4 ng/mL 7.0-15.4 09/09/2017 5:50am 09/09/2017 7:05am Free Thyroxine Index 2.0016 1.4-3.8 09/08/2017 12:30am 09/08/2017 1: 26am Thyroxine (T4) 6.55 ug/dL 4.5-10.9 09/08/2017 12:30am 09/08/2017 1: 26am Our current method for Total T4 is not recommended for use as the only marker for evaluating patients for thyroid disorders. Triiodothyronine (T3) Uptake 30.56 % 22.50-37.00 09/08/2017 12:30am 05/2017 1:26am Arterial Blood pH 7.43 H 7.31-7.41 09/07/2017 4:34pm 09/07/2017 4: 55pm Arterial Blood Partial Pressure CO2 42 mmHg 41-51 09/07/2017 4:34pm 04/2017 4:55pm Arterial Blood Partial Pressure O2 61 mmHg L 80-105 09/07/2017 4:34pm 4:55pm Arterial Blood HCO3 28 mmol/L 23-28 09/07/2017 4:34pm 09/07/2017 4: 55pm Arterial Blood Base Excess 4.0 mmol/L H -2 - 3 09/07/2017 4:34pm 2016 4:55pm Arterial Blood Oxygen Saturation 92.0 % L 95-98 09/07/2017 4:34pm 2016 4:55pm Free Triiodothyronine 2.8 pg/mL 2.0-4.4 09/08/2017 7:37am 09/09/2017 6: 48am Performed at: - [facility] [id number] Greenskeeper Supervisor: Kirit Mckee MD, Phone: [phone] Thyroid Peroxidase Antibodies 12 IU/mL 0-34 09/08/2017 7:37am 2016 6:48am Urine Vanillylmandelic Acid mg/L 6.1 mg/L Undefined 09/08/2017 4:30pm 09/14/2017 1:42pm Urine Vanillylmandelic Acid 24 Hour 6.7 mg/24 hr 0.0-7.5 09/08/2017 4: 30pm 09/14/2017 1:42pm This test was developed and its performance characteristics determined by [facility]. It has not been cleared or approved by the Food and Drug Administration. Performed at: [address] [id number] Greenskeeper Supervisor: Kirk Zaldivar MD, Phone: [phone] Urine Metanephrines 24 Hour 462 09/08/2017 4:30pm 09/22/2017 7: 56am Reference Range: 45 - 290 ug/24 hr (Hypertensive) >17 years 11 months: 35 - 460 Urine Normetanephrine 24 Hour 1267 09/08/2017 4:30pm 09/22/2017 7: 56am Reference Range: 82 - 500 ug/24 hr (Hypertensive) >17 years 11 months: 110 - 1050 Urine Total Metanephrines 24 Hour 420 ug/L 09/08/2017 4:30pm 2016 7:56am Reference Range:Undefined Urine Normetanephrine 1152 ug/L 09/08/2017 4:30pm 09/22/2017 7: 56am Reference Range:Undefined Testing performed by: [address] [id number] Dir. Kirk Zaldivar MD Urine 5-HIAA 24 Hour 4.0 mg/24 hr 0.0-14.9 09/08/2017 4:30pm 2016 1:42pm This test was developed and its performance characteristics determined by [facility]. It has not been cleared or approved by the Food and Drug Administration. Performed at: [address] [id number] Greenskeeper Supervisor: Kirk Zaldivar MD, Phone: [phone] Urine 5-HIAA 3.6 mg/L Undefined 09/08/2017 4:30pm 09/14/2017 1:42pm White Blood Count 13.65 x10e3/uL H 4.8-10.8 12/04/2017 6:00am 2017 6:26am Red Blood Count 3.99 x10e6/uL 3.6-5.1 12/04/2017 6:00am 12/04/2017 6: 26am Hemoglobin 12.0 g/dL 12.0-16.0 12/04/2017 6:00am 12/04/2017 6:26am Results called to NIKKI Self RN at 0626 on 12/04/17 by Masoud Madrigal. RB OK. Hematocrit 38.1 % 34.2-44.1 12/04/2017 6:00am 12/04/2017 6:26am Mean Corpuscular Volume 95.5 fL 81-99 12/04/2017 6:00am 12/04/2017 6: 26am Mean Corpuscular Hemoglobin 30.1 pg 28-32 12/04/2017 6:00am 12/04/2017 6:26am Mean Corpuscular Hemoglobin Concent 31.5 g/dL 31-35 12/04/2017 6:00am 12/04/2017 6:26am Red Cell Distribution Width 18.0 % H 11.7-14.4 12/04/2017 6:00am 2017 6:26am Platelet Count 312 x10e3/uL 140-360 12/04/2017 6:00am 12/04/2017 6: 26am Neutrophils (%) (Auto) 37.0 % L 38.7-80.0 12/04/2017 6:00am 12/04/2017 6 :26am Lymphocytes (%) (Auto) 49.7 % H 18.0-39.1 12/04/2017 6:00am 12/04/2017 6 :26am Monocytes (%) (Auto) 8.0 % 4.4-11.3 12/04/2017 6:00am 12/04/2017 6: 26am Eosinophils (%) (Auto) 4.2 % 0.0-6.0 12/04/2017 6:00am 12/04/2017 6: 26am Basophils (%) (Auto) 0.6 % 0.0-1.0 12/04/2017 6:00am 12/04/2017 6:26am IM GRANULOCYTES % 0.5 % 0.0-1.0 12/04/2017 6:00am 12/04/2017 6:26am Neutrophils # (Auto) 5.1 2.1-6.9 12/04/2017 6:00am 12/04/2017 6:26am Lymphocytes # (Auto) 6.8 H 1.0-3.2 12/04/2017 6:00am 12/04/2017 6: 26am Monocytes # (Auto) 1.1 H 0.2-0.8 12/04/2017 6:00am 12/04/2017 6:26am Eosinophils # (Auto) 0.6 H 0.0-0.4 12/04/2017 6:00am 12/04/2017 6: 26am Basophils # (Auto) 0.1 0.0-0.1 12/04/2017 6:00am 12/04/2017 6:26am Absolute Immature Granulocyte (auto 0.07 x10e3/uL 0-0.1 12/04/2017 6: 00am 12/04/2017 6:26am Urine Color YELLOW YELLOW 12/03/2017 6:48am 12/03/2017 7:18am Urine Clarity CLEAR CLEAR 12/03/2017 6:48am 12/03/2017 7:18am Urine Specific [place] 1.010 1.010-1.025 12/03/2017 6:48am 2017 7:18am Urine pH 6.5 5 - 7 12/03/2017 6:48am 12/03/2017 7:18am Urine Leukocyte Esterase NEGATIVE NEGATIVE 12/03/2017 6:48am 2017 7:18am Urine Nitrite NEGATIVE NEGATIVE 12/03/2017 6:48am 12/03/2017 7:18am Urine Protein NEGATIVE NEGATIVE 12/03/2017 6:48am 12/03/2017 7:18am Urine Glucose (UA) NEGATIVE NEGATIVE 12/03/2017 6:48am 12/03/2017 7: 18am Urine Ketones NEGATIVE NEGATIVE 12/03/2017 6:48am 12/03/2017 7:18am Urine Opiates Screen POSITIVE H NEGATIVE 12/01/2017 11:47am 2017 12:55pm This test provides only a screen. Positive results should be repeated by a confirmatory test. Urine Barbiturates Screen NEGATIVE NEGATIVE 12/01/2017 11:47am 2017 12:55pm Urine Phencyclidine Screen NEGATIVE NEGATIVE 12/01/2017 11:47am 12/01 12:55pm Urine Amphetamines Screen NEGATIVE NEGATIVE 12/01/2017 11:47am 2017 12:55pm Urine Benzodiazepines Screen POSITIVE H NEGATIVE 12/01/2017 11:47am 12:55pm This test provides only a screen. Positive results should be repeated by a confirmatory test. Urine Cocaine Screen NEGATIVE NEGATIVE 12/01/2017 11:47am 12/01/2017 12:55pm Urine Cannabinoids Screen NEGATIVE NEGATIVE 12/01/2017 11:47am 2017 12:55pm THESE RESULTS ARE FOR MEDICAL TREATMENT ONLY *THIS REPORT CONTAINS UNCONFIRMED SCREENING RESULTS* POSITIVE RESULTS WILL BE CONFIRMED BY REFERENCE LAB UPON REQUEST CUT-OFF DRUG CLASS CONCENTRATION ng/mL Amphetamines 1000 Methamphetamines 1000 Cocaine 300 Opiate 300 Phencyclidine 25 Cannabinoid 50 Barbiturates 300 Benzodiazepine 300 Methadone 300 Urine Urobilinogen 0.2 mg/dL 0.2 - 1 12/03/2017 6:48am 12/03/2017 7: 18am Urine Bilirubin NEGATIVE NEGATIVE 12/03/2017 6:48am 12/03/2017 7: 18am Urine Blood 3+ H NEGATIVE 12/03/2017 6:48am 12/03/2017 7:18am Urine WBC 0-5 /HPF 0-5 12/03/2017 6:48am 12/03/2017 7:51am Urine RBC 11-20 /HPF H 0-5 12/03/2017 6:48am 12/03/2017 7:51am Urine Bacteria FEW /HPF NONE 12/03/2017 6:48am 12/03/2017 7:51am Urine Epithelial Cells FEW /LPF NONE 12/03/2017 6:48am 12/03/2017 7: 51am Sodium Level 139 mmol/L 136-145 12/03/2017 6:15am 12/03/2017 7:21am Potassium Level 3.1 mmol/L L 3.5-5.1 12/03/2017 6:15am 12/03/2017 7: 21am Chloride Level 103 mmol/L 98-107 12/03/2017 6:15am 12/03/2017 7:21am Carbon Dioxide Level 26 mmol/L 22-29 12/03/2017 6:15am 12/03/2017 7: 21am Anion Gap 13.1 mmol/L 8-16 12/03/2017 6:15am 12/03/2017 7:21am Blood Urea Nitrogen < 5 mg/dL L 7-26 12/03/2017 6:1512/03/2017 7: 21am Creatinine 0.58 mg/dL 0.57-1.11 12/03/2017 6:15am 12/03/2017 7:21am BUN/Creatinine Ratio 9 6-25 12/03/2017 6:15am 12/03/2017 7:21am Estimat Glomerular Filtration Rate > 60 ML/MIN 60- 12/03/2017 6:15am 7:21am Ranges were taken from the National Kidney Disease Education Program and the National Kid[employer] Foundation literature. Reference ranges: 60 or greater: Normal 16-59 (for 3 consecutive months): Chronic kidney disease 15 or less: Kidney failure Glucose Level 100 mg/dL 74-118 12/03/2017 6:15am 12/03/2017 7:21am Calcium Level 8.0 mg/dL L 8.4-10.2 12/03/2017 6:15am 12/03/2017 7:21am Total Bilirubin 0.5 mg/dL 0.2-1.2 12/01/2017 2:58pm 12/01/2017 3:25pm Aspartate Amino Transf (AST/SGOT) 18 IU/L 5-34 12/01/2017 2:58pm 2017 3:25pm Alanine Aminotransferase (ALT/SGPT) 13 IU/L 0-55 12/01/2017 2:58pm 3:25pm Total Protein 8.1 g/dL 6.5-8.1 12/01/2017 2:58pm 12/01/2017 3:25pm Albumin 4.5 g/dL 3.5-5.0 12/01/2017 2:58pm 12/01/2017 3:25pm Globulin 3.6 g/dL H 2.3-3.5 12/01/2017 2:58pm 12/01/2017 3:25pm Albumin/Globulin Ratio 1.3 0.8-2.0 12/01/2017 2:58pm 12/01/2017 3: 25pm Alkaline Phosphatase 74 IU/L 40-150 12/01/2017 2:58pm 12/01/2017 3: 25pm B-Type Natriuretic Peptide 17.3 pg/mL 0-100 12/01/2017 1:50pm 2017 2:35pm Creatine Kinase 45 IU/L 29-168 12/01/2017 2:58pm 12/01/2017 3:25pm Creatine Kinase MB 0.70 ng/mL 0.00-5.00 12/01/2017 2:58pm 12/01/2017 3: 51pm Troponin I 0.004 ng/mL 0-0.300 12/01/2017 2:58pm 12/01/2017 3:51pm Amylase Level 61 U/L 25-125 12/01/2017 2:58pm 12/01/2017 3:25pm Lipase 36 U/L 8-78 12/01/2017 2:58pm 12/01/2017 3:25pm Thyroid Stimulating Hormone (TSH) 2.538 uIU/mL 0.350-4.940 12/01/2017 2: 58pm 12/01/2017 3:51pm Human Chorionic Gonadotropin, Qual NEGATIVE NEGATIVE 12/01/2017 2: 58pm 12/01/2017 3:18pm Microbiology Results Procedure Source Organism/Result Collection Date/Time Result Date/Time Result Status Blood Culture Blood NO GROWTH AFTER 5 DAYS, FINAL REPORT 09/07/2017 10: 00pm 09/12/2017 10:05pm Final Procedures Procedure Status Date Provider(s) INSERTION OF INFUSION DEV INTO SUP VENA CAVA, PERC APPROACH Completed HOLLY MICHAEL MD Computed tomography of chest without contrast Active 09/07/17 TARAS ENGLISH MD X-ray of chest, two views Active 09/08/17 TARAS ENGLISH MD X-ray of chest, two views Active 09/12/17 ANNY FALLON MD Computed tomography of abdomen and pelvis with contrast Active 09/12/17 DAHLIA MURRAY MD Computed tomography of brain without radiopaque contrast Active 12/01/[address] of abdomen and pelvis without contrast Active 12/01/17 GUS BATEMAN NP Encounters Encounter Location Arrival/Admit Date Discharge/Depart Date Attending Provider Discharged Inpatient (obs) [facility] 12/01/17 8:22pm 12/20 8:14am CHARLES OSORIO MD Discharged Inpatient [facility] 09/08/17 8:09am 09/14/17 7:16pm CHARLES OSORIO MD Departed Emergency Room [facility] 06/11/17 11:11am 06/11 2:01pm MIRANDA AGUIRRE MD Recent Diagnosis Headache
--- OUTSIDE RECORDS SUMMARY | 2017-12-08 08:00 | XMS REPORT | Clinical Summary ---
Author Author [facility] Address Unknown Phone Unavailable Care Team Providers Care Biomedical Equipment Specialist Name Role Phone PCP Unavailable Allergies Active Allergy Reactions Severity Noted Date Comments Cyclobenzaprine 09/11/2016 tachycardia Levofloxacin 09/11/2016 tachycardia Ondansetron Hcl (Pf) Itching 09/11/2016 Paroxetine Hcl Other (See Comments) 09/11/2016 "burning" sensation. Sertraline Other (See Comments) 09/11/2016 Burning sensation in arms and head Sulfa (Sulfonamide Other (See Comments) 09/11/2016 Platelets drop. Antibiotics) Prochlorperazine Maleate Palpitations Low 09/11/2016 tachycardia Current Medications Not on file Active Problems Problem Noted Date Anemia 11/29/2014 Social History Tobacco Use Types Packs/Day Years Used Date Never Smoker Alcohol Use Drinks/Week oz/Week Comments Yes socially Sex Assigned at Date Recorded Not on file Last Filed Vital Signs Not on file Plan of Treatment Health Maintenance Due Date Last Done Comments INFLUENZA VACCINE 08/02/2017 Results Not on fileafter 12/07/2016
[2017-12-08 09:43] LABS: BASOPHILS # (AUTO) 0.1 (0.0-0.1); BASOPHILS % 0.4 % (0.0-1.0); HEMATOCRIT 39.5 % (34.2-44.1); HEMOGLOBIN 13.1 g/dL (12.0-16.0); LYMPHOCYTES # (AUTO) 1.7 (1.0-3.2); LYMPHOCYTES % 12.6 % (18.0-39.1); MEAN CORPUSCULAR HEMOGLOBIN 30.5 pg (28-32); MEAN CORPUSCULAR HGB CONC 33.2 g/dL (31-35); MEAN CORPUSCULAR VOLUME 91.9 fL (81-99); MONOCYTES # (AUTO) 0.7 (0.2-0.8); MONOCYTES % 5.1 % (4.4-11.3); NEUTROPHILS # (AUTO) 11.2 (2.1-6.9); NEUTROPHILS % 81.2 % (38.7-80.0); PLATELET COUNT 417 x10e3/uL (140-360); RED CELL DISTRIBUTION WIDTH 16.9 % (11.7-14.4)
[2017-12-08 10:14] LABS: BILIRUBIN,URINE NEGATIVE (NEGATIVE); KETONES,URINE NEGATIVE (NEGATIVE); LEUKOCYTE ESTERASE ,URINE NEGATIVE (NEGATIVE); NITRITE,URINE NEGATIVE (NEGATIVE); PROTEIN,URINE DIPSTICK NEGATIVE (NEGATIVE); URINE UROBILINOGEN 0.2 mg/dL (0.2 - 1)
[2017-12-08 10:22] LABS: CLARITY,URINE CLEAR (CLEAR); COLOR,URINE YELLOW (YELLOW)
[2017-12-08 10:24] LABS: PREGNANCY TEST, URINE NEGATIVE (NEGATIVE)
[2017-12-08 10:40] LABS: AMORPHOUS SEDIMENT,URINE RARE (FEW); BACTERIA,URINE RARE /HPF; EPITHELIAL CELLS,URINE RARE /LPF; RBC,URINE 0-5 /HPF (0-5)
[2017-12-08 10:50] LABS: ALANINE AMINOTRANSFERASE 14 IU/L (0-55); ALBUMIN 4.7 g/dL (3.5-5.0); ALBUMIN/GLOBULIN RATIO 1.1 (0.8-2.0); ALKALINE PHOSPHATASE 91 IU/L (40-150); ANION GAP 17.4 mmol/L (8-16); BLOOD UREA NITROGEN 5 mg/dL (7-26); BUN/CREATININE RATIO 7 (6-25); CALCIUM 9.1 mg/dL (8.4-10.2); CARBON DIOXIDE 28 mmol/L (22-29); CHLORIDE 97 mmol/L (98-107); CREATININE, SERUM 0.69 mg/dL (0.57-1.11); EST GLOMERULAR FILTRATION RATE > 60 ML/MIN (60-); GLUCOSE 106 mg/dL (74-118); POTASSIUM 3.4 mmol/L (3.5-5.1); SODIUM 139 mmol/L (136-145)
[2017-12-08] MEDS ORDERED: PROMETHAZINE HCL (IM) 25 MG/ML VIAL IV PRN (11:15)
--- NOTE | 2017-12-08 11:55 | Diagnostic Imaging Report ---
PROCEDURE: Frontal and lateral views of the chest. COMPARISON: Patients [facility], , CHEST 2 VIEWS, 09/12/2017, 12:44. INDICATIONS: PNEUMONIA, VOMITING FINDINGS: Lines/tubes: None. Lungs: Coarse calcific densities projected on the left mid and lower hemithorax. Sutures in the lingula are also stable. There is no evidence of pneumonia or pulmonary edema. Pleura: There is no pleural effusion or pneumothorax. Heart and mediastinum: The heart and the mediastinum are normal. Bones: No acute bony abnormality. IMPRESSION: 1. No acute thoracic abnormality. No interval change. Shankar Stone M.D. Dictated by: Shankar Stone M.D. on 12/08/2017 at 12:05 Electronically approved by: Shankar Stone M.D. on 12/08/2017 at 12:05
[2017-12-08 12:50] LABS: INR 0.84; PARTIAL THROMBOPLASTIN TIME 32.1 seconds (23.8-35.5); PROTHROMBIN TIME 11.9 seconds (11.9-14.5)
[2017-12-08] MEDS ORDERED: HYDROMORPHONE 2MG/ML INJ IM ONE (16:45)
[2017-12-08] MEDS ORDERED: PROMETHAZINE HCL (IM) 25 MG/ML VIAL IM ONE (16:45)
--- OUTSIDE RECORDS SUMMARY | 2017-12-08 16:47 | XMS REPORT | Clinical Summary ---
Author Author [facility] Address Unknown Phone Unavailable Care Team Providers Care Traffic Recorder Name Role Phone PCP Unavailable Allergies Active [...]
[2017-12-08] MEDS: MORPHINE SULFATE 2 MG/ML SYR IV PRN ×2 (16:54→20:58)
[2017-12-08] MEDS: SODIUM CHLORIDE 0.9% 1000ML 1,000 ML IV SCH ×3 (16:54→20:21)
[2017-12-08] MEDS: PROMETHAZINE 12.5MG/ NACL 0.9% 12.5 MG/50 ML BAG IV PRN (20:59)
[2017-12-08 21:33] VITALS: BP 112/71
[2017-12-08 21:47] VITALS: BP 112/71
[2017-12-09] VITALS (7 sets, daily range): BP systolic 101–127; BP diastolic 58–84
[2017-12-09] MEDS: SODIUM CHLORIDE 0.9% 1000ML 1,000 ML IV SCH ×3 (00:42→20:07)
[2017-12-09] MEDS: MORPHINE SULFATE 2 MG/ML SYR IV PRN ×4 (01:00→13:39)
[2017-12-09] MEDS: PROMETHAZINE 12.5MG/ NACL 0.9% 12.5 MG/50 ML BAG IV PRN ×5 (01:00→19:47)
[2017-12-09] MEDS: PANTOPRAZOLE INJ 40 MG in SODIUM CHLORIDE 0.9% 50ML 50 ML IV SCH ×5 (01:47→22:38)
[2017-12-09] MEDS ORDERED: PANTOPRAZOLE 40 MG 10ML VIAL ONE ×2 (01:49→02:11)
[2017-12-09] MEDS ORDERED: SODIUM CHLORIDE 0.9% 50ML 150 ML ONE (01:51)
[2017-12-09 06:20] LABS: BASOPHILS # (AUTO) 0.1 (0.0-0.1); BASOPHILS % 0.5 % (0.0-1.0); EOSINOPHILS # (AUTO) 0.2 (0.0-0.4); EOSINOPHILS % 1.2 % (0.0-6.0); HEMATOCRIT 34.6 % (34.2-44.1); HEMOGLOBIN 11.1 g/dL (12.0-16.0); LYMPHOCYTES # (AUTO) 3.1 (1.0-3.2); LYMPHOCYTES % 23.6 % (18.0-39.1); MEAN CORPUSCULAR HEMOGLOBIN 30.3 pg (28-32); MEAN CORPUSCULAR HGB CONC 32.1 g/dL (31-35); MEAN CORPUSCULAR VOLUME 94.5 fL (81-99); MONOCYTES # (AUTO) 1.3 (0.2-0.8); NEUTROPHILS # (AUTO) 8.4 (2.1-6.9); NEUTROPHILS % 64.2 % (38.7-80.0); PLATELET COUNT 415 x10e3/uL (140-360); RED BLOOD COUNT 3.66 x10e6/uL (3.6-5.1); RED CELL DISTRIBUTION WIDTH 17.2 % (11.7-14.4)
[2017-12-09 06:43] LABS: ALANINE AMINOTRANSFERASE 13 IU/L (0-55); ALBUMIN 3.6 g/dL (3.5-5.0); ALBUMIN/GLOBULIN RATIO 1.2 (0.8-2.0); ALKALINE PHOSPHATASE 73 IU/L (40-150); AMYLASE 54 U/L (25-125); ANION GAP 13.1 mmol/L (8-16); BLOOD UREA NITROGEN 8 mg/dL (7-26); BUN/CREATININE RATIO 14 (6-25); CARBON DIOXIDE 28 mmol/L (22-29); CHLORIDE 102 mmol/L (98-107); CREATININE, SERUM 0.58 mg/dL (0.57-1.11); EST GLOMERULAR FILTRATION RATE > 60 ML/MIN (60-); GLUCOSE 91 mg/dL (74-118); LIPASE 20 U/L (8-78); POTASSIUM 3.1 mmol/L (3.5-5.1); SODIUM 140 mmol/L (136-145)
--- NOTE | 2017-12-09 13:46 | Diagnostic Imaging Report ---
PROCEDURE: A single AP view of the chest. COMPARISON: Same day at 1131 hours INDICATIONS: LINE PLACEMENT FINDINGS: Lines/tubes: Right PICC visualized with tip overlying right axilla. Lungs: The lungs are well inflated. Left midlung suture line is again seen. Unchanged cavitation overlying left base. Pleura: There is no pleural effusion or pneumothorax. Heart and mediastinum: The heart and the mediastinum are unremarkable. Calcification adjacent to the left sharon is probably a calcified lymph node, unchanged. Bones: No acute bony abnormality. IMPRESSION: Recommend advancement of PICC line. Otherwise, unchanged from prior study. Dictated by: Luciano Norwood M.D. on 12/09/2017 at 13:56 Electronically approved by: Luciano Norwood M.D. on 12/09/2017 at 13:56
[2017-12-09] MEDS: HYDROMORPHONE 2MG/ML INJ IV PRN ×2 (16:13→20:59)
[2017-12-09] MEDS ORDERED: POTASSIUM CHLORIDE 20MEQ/100ML 100 ML IV ONE ×2 (16:30→18:30)
[2017-12-09] MEDS: DIPHENHYDRAMINE HCL 25 MG CAP PO SCH (17:50)
[2017-12-09] MEDS ORDERED: LORAZEPAM 1 MG TAB PO PRN (20:15)
[2017-12-09] MEDS: GABAPENTIN 300 MG CAP PO SCH (20:58)
[2017-12-09] MEDS: CLONAZEPAM 1 MG TAB PO SCH (20:58)
[2017-12-09] MEDS: TIZANIDINE HCL 4 MG TAB PO SCH (20:58)
[2017-12-09] MEDS: DICYCLOMINE HCL 10 MG CAP PO SCH (20:58)
[2017-12-10] VITALS (11 sets, daily range): BP systolic 85–141; BP diastolic 48–93
[2017-12-10] MEDS ORDERED: NALOXONE HCL INJ 0.4 MG/ML AMP ONE (01:28)
[2017-12-10] MEDS: SODIUM CHLORIDE 0.9% 1000ML 1,000 ML IV SCH ×3 (01:47→19:02)
[2017-12-10] MEDS: PANTOPRAZOLE INJ 40 MG in SODIUM CHLORIDE 0.9% 50ML 50 ML IV SCH ×4 (04:04→20:22)
[2017-12-10] MEDS: HYDROMORPHONE 2MG/ML INJ IV PRN ×4 (04:18→17:43)
[2017-12-10] MEDS: PROMETHAZINE 12.5MG/ NACL 0.9% 12.5 MG/50 ML BAG IV PRN ×4 (04:51→17:43)
[2017-12-10] MEDS: LEVOTHYROXINE SODIUM 75 MCG TAB PO SCH (06:13)
[2017-12-10] MEDS: DIPHENHYDRAMINE HCL 25 MG CAP PO SCH ×2 (08:39→17:20)
[2017-12-10] MEDS: GABAPENTIN 300 MG CAP PO SCH ×3 (08:40→20:55)
[2017-12-10] MEDS: DICYCLOMINE HCL 10 MG CAP PO SCH ×3 (08:40→20:55)
[2017-12-10] MEDS: METOPROLOL SUCCINATE 25 MG TAB XL PO SCH ×2 (08:40→17:20)
[2017-12-10] MEDS: CLONAZEPAM 0.5 MG TAB PO SCH (08:40)
[2017-12-10] MEDS: TIZANIDINE HCL 4 MG TAB PO SCH ×3 (08:54→20:56)
[2017-12-10] MEDS: OLANZAPINE 5 MG TAB PO SCH ×2 (08:54→17:00)
[2017-12-10] MEDS ORDERED: CLONAZEPAM 0.5 MG TAB PO SCH (17:00)
[2017-12-10] MEDS: CLONAZEPAM 1 MG TAB PO SCH (20:55)
[2017-12-11] VITALS: BP 128/81
[2017-12-11] MEDS: PANTOPRAZOLE INJ 40 MG in SODIUM CHLORIDE 0.9% 50ML 50 ML IV SCH ×3 (01:00→10:19)
[2017-12-11] MEDS: HYDROMORPHONE 2MG/ML INJ IV PRN ×3 (01:26→10:30)
[2017-12-11] MEDS: PROMETHAZINE 12.5MG/ NACL 0.9% 12.5 MG/50 ML BAG IV PRN ×3 (01:26→10:30)
[2017-12-11] MEDS: SODIUM CHLORIDE 0.9% 1000ML 1,000 ML IV SCH ×2 (03:37→12:12)
[2017-12-11 04:00] VITALS: BP 128/74
[2017-12-11] MEDS: LEVOTHYROXINE SODIUM 75 MCG TAB PO SCH (06:05)
[2017-12-11 08:20] VITALS: BP 111/63
[2017-12-11] MEDS ORDERED: COLLAGENASE OINTMENT 30 GM TUBE TP SCH (09:00)
[2017-12-11] MEDS: TIZANIDINE HCL 4 MG TAB PO SCH (09:00)
[2017-12-11] MEDS: CLONAZEPAM 0.5 MG TAB PO SCH (09:25)
[2017-12-11] MEDS: OLANZAPINE 5 MG TAB PO SCH (09:25)
[2017-12-11] MEDS: GABAPENTIN 300 MG CAP PO SCH (09:25)
[2017-12-11] MEDS: DIPHENHYDRAMINE HCL 25 MG CAP PO SCH (09:25)
[2017-12-11] MEDS: DICYCLOMINE HCL 10 MG CAP PO SCH (09:25)
[2017-12-11] MEDS: METOPROLOL SUCCINATE 25 MG TAB XL PO SCH (09:26)
[2017-12-11 09:38] VITALS: BP 111/63
[2017-12-11 09:49] LABS: ANION GAP 12.6 mmol/L (8-16); BLOOD UREA NITROGEN < 5 mg/dL (7-26); BUN/CREATININE RATIO 8 (6-25); CALCIUM 7.9 mg/dL (8.4-10.2); CARBON DIOXIDE 28 mmol/L (22-29); CHLORIDE 102 mmol/L (98-107); EST GLOMERULAR FILTRATION RATE > 60 ML/MIN (60-); GLUCOSE 83 mg/dL (74-118); POTASSIUM 3.6 mmol/L (3.5-5.1); SODIUM 139 mmol/L (136-145)
[2017-12-11 10:29] VITALS: BP 126/81
[2017-12-11 12:33] VITALS: BP 129/86
== END 2017-12-11 13:50 | disposition home or self-care (01) ==
LOC: ER 07:58 → ERHOLD 16:44 → IMCU 19:04
DX: K29.00 Acute gastritis without bleeding (principal); E86.0 Dehydration; E87.6 Hypokalemia; R10.13 Epigastric pain; R11.2 Nausea with vomiting, unspecified; I25.10 Atherosclerotic heart disease of native coronary artery without angina pectoris; Z95.5 Presence of coronary angioplasty implant and graft; Z85.028 Personal history of other malignant neoplasm of stomach; E03.9 Hypothyroidism, unspecified; Z85.71 Personal history of Hodgkin lymphoma; Z88.1 Allergy status to other antibiotic agents; Z88.2 Allergy status to sulfonamides; Z88.8 Allergy status to other drugs, medicaments and biological substances; K29.70 Gastritis, unspecified, without bleeding
CPT/HCPCS: 36415 ×3; 36569 ×2; 71045; 71046; 80048; 80053 ×2; 81001; 81025; 82150; 83690; 85025 ×2; 85610; 85730; 87086; 93005; 99285; G0378 ×4; J1170 ×4; J2270 ×2; J2550 ×4; J3480; J7030 ×4; J2310

== ENCOUNTER → 2018-01-06 | Day surgery (SDC) | payer BC ==
[~2018-01-06] MED LIST changes: +AMBIEN10 MG PO; +FENTANYL CITRATE/PF 100MCG/2 ML INJ ONE; +KLONOPIN0.5 MG; +LIPITOR40 MG PO; +MIDAZOLAM HCL 2 MG/2 ML VIAL ONE; +PROPOFOL IV EMULSION 10 MG/ML 50 ML VIAL ONE; +ROBAXIN PO
--- NOTE | 2018-01-06 15:17 | Operative Report ---
DATE OF PROCEDURE: January 06, 2018 REFERRING PHYSICIAN: Dr. Terri Osorio. PROCEDURE PERFORMED: Esophagogastroduodenoscopy with biopsies. INDICATIONS FOR EGD: Heartburn, indigestion, nausea and vomiting. Patient is status post gastrectomy for CA of stomach. MEDICATION: Patient was done under MAC. Please see anesthesiologist's note. PROCEDURE: With the patient in the left lateral decubitus position, the flexible fiberoptic Olympus gastroscope was introduced into the esophagus under direct visualization without any difficulty. The esophagus appeared to be within normal limits. There was a small hiatal hernia, and the scope was advanced with ease into the stomach. The patient is status post Ehsan-en-Y with moderate to large amount of retained undigested food in the stomach. The anastomosis that was visualized appeared to be intact without evidence of recurrence. There was a focal area of nodularity and friability at the anastomosis that was biopsied. The scope was then advanced with ease into the enteric loop which was patent. The scope was then withdrawn back into the stomach. It was then withdrawn. Patient tolerated the procedure well. IMPRESSION 1. Normal esophagus. 2. Small hiatal hernia. 3. Status post Ehsan-en-Y. Focal nodularity and friability at the anastomosis biopsied. 4. Moderate to large amount of retained undigested food in stomach. PLAN: Follow up histology. Continue Carafate 1 gram p.o. a.c. t.i.d. and nightly. Job#: [id number] cc:TERRI OSORIO MD
== END | disposition home or self-care (01) ==
LOC: OR 11:12
PROVIDERS: ATTEND Internal Medicine Gastroenterology
DX: K29.50 Unspecified chronic gastritis without bleeding (principal); C7A.092 Malignant carcinoid tumor of the stomach; Z90.3 Acquired absence of stomach [part of]; K44.9 Diaphragmatic hernia without obstruction or gangrene; K31.89 Other diseases of stomach and duodenum; R19.7 Diarrhea, unspecified; I10 Essential (primary) hypertension; E03.9 Hypothyroidism, unspecified; J45.909 Unspecified asthma, uncomplicated; F41.9 Anxiety disorder, unspecified; Z79.82 Long term (current) use of aspirin; Z68.25 Body mass index [BMI] 25.0-25.9, adult; Z90.49 Acquired absence of other specified parts of digestive tract; Z85.71 Personal history of Hodgkin lymphoma; Z80.0 Family history of malignant neoplasm of digestive organs
CPT/HCPCS: 36415; 43239; 84702; 93005; J2250

== ENCOUNTER → 2019-02-25 | Day surgery (SDC) | payer BC ==
[~2019-02-25] MED LIST changes: +ASPIR 8181 MG PO; +LIDOCAINE HCL 2% LOCAL INJ 5 ML SDV VIAL INJ ONE; +PHENERGAN PO; +ULTRAM 50MG50 MG PO
[2019-02-25 14:29] LABS: BASOPHILS # (AUTO) 0.1 (0.0-0.1); BASOPHILS % 0.8 % (0.0-1.0); EOSINOPHILS # (AUTO) 0.2 (0.0-0.4); EOSINOPHILS % 2.1 % (0.0-6.0); HEMATOCRIT 40.8 % (34.2-44.1); HEMOGLOBIN 13.3 g/dL (12.0-16.0); LYMPHOCYTES # (AUTO) 4.5 (1.0-3.2); MEAN CORPUSCULAR HEMOGLOBIN 32.4 pg (28-32); MEAN CORPUSCULAR HGB CONC 32.6 g/dL (31-35); MEAN CORPUSCULAR VOLUME 99.3 fL (81-99); MONOCYTES # (AUTO) 0.6 (0.2-0.8); NEUTROPHILS % 42.9 % (38.7-80.0); PLATELET COUNT 307 x10e3/uL (140-360); RED BLOOD COUNT 4.11 x10e6/uL (3.6-5.1); RED CELL DISTRIBUTION WIDTH 13.6 % (11.7-14.4)
[2019-02-25 16:45] VITALS: BP 123/87
--- NOTE | 2019-02-25 22:52 | Operative Report ---
DATE OF PROCEDURE: 02/25/2019 SURGEON: Drake Blum MD REFERRING PHYSICIAN: Anthony Blum MD. INDICATIONS FOR EGD: Upper abdominal pain, nausea, and vomiting. MEDICATIONS: The patient was done under MAC, please see anesthesiologist's note. PROCEDURE IN DETAIL: With the patient in left lateral decubitus position, a flexible fiberoptic Olympus gastroscope was introduced into the esophagus under direct visualization without any difficulty. There was some patchy erythema noted in distal esophagus. The scope was then advanced with ease into the stomach and a large amount of retained undigested food was noted in the stomach. Precluding visualization of primarily the anastomosis as the patient is status post gastric resection for CA of the stomach. Biopsies were obtained from the anastomosis. The scope was then retroflexed and some atrophic changes were noted in the fundus of the stomach. Cardia grossly appeared to be within normal limits. The scope was then straightened out and it was subsequently withdrawn. The patient tolerated procedure well. IMPRESSION: 1. Mild distal esophagitis. 2. Status post gastrectomy. 3. Wvygclel-ry-[id number] amount of retained undigested food stuff in stomach precluding optimal visualization of the anastomosis. PLAN: Follow up histology. Continue Protonix 40 mg one p.o. a.c. b.i.d. and Carafate 2 g p.o. a.c. t.i.d. We will need a repeat EGD with the patient being off clear liquids x1 day prior to the procedure. Drake Blum MD [facility] [place] /[id number] cc: Anthony Blum MD
== END | disposition home or self-care (01) ==
LOC: OR 13:51
PROVIDERS: ATTEND Internal Medicine Gastroenterology
DX: R11.2 Nausea with vomiting, unspecified (principal); R10.10 Upper abdominal pain, unspecified; K20.9 Esophagitis, unspecified; K31.89 Other diseases of stomach and duodenum; Z90.3 Acquired absence of stomach [part of]; Z85.028 Personal history of other malignant neoplasm of stomach; J45.909 Unspecified asthma, uncomplicated; I50.9 Heart failure, unspecified; Z88.1 Allergy status to other antibiotic agents; Z88.2 Allergy status to sulfonamides; Z88.8 Allergy status to other drugs, medicaments and biological substances; Z79.82 Long term (current) use of aspirin
CPT/HCPCS: 36415; 43239; 81025; 85025; 93005; J2001; J2250; J2704

== ENCOUNTER → 2019-02-28 | Day surgery (SDC) | payer BC ==
[~2019-02-28] MED LIST changes: +ACETAMINOPHEN 1000 MG/100 ML 100 ML IV ONE
--- OUTSIDE RECORDS SUMMARY | 2019-02-28 06:01 | XMS REPORT | Clinical Summary ---
Author Author [facility] Address Unknown Phone Unavailable Care Team Providers Care Alteration Workroom Supervisor Name Role Phone PCP Unavailable Allergies Comments Active Allergy Reactions Severity Noted Date tachycardia Cyclobenzaprine 09/11/2016 tachycardia Levofloxacin 09/11/2016 Ondansetron Hcl (Pf) Itching 09/11/2016 "burning" sensation. Paroxetine Hcl Other (See 09/11/2016 Comments) tachycardia Prochlorperazine Maleate Palpitations Low 09/11/2016 Burning sensation in arms and head Sertraline Other (See 09/11/2016 Comments) Platelets drop. Sulfa (Sulfonamide Other (See 09/11/2016 Antibiotics) Comments) Medications Not on file Active Problems Problem Noted Date Anemia 11/29/2014 Social History Date Tobacco Use Types Packs/Day Years Used Never Smoker Alcohol Use Drinks/Week oz/Week Comments Yes socially Sex Assigned at Date Recorded Not on file Industry Job Start Date Occupation Not on file Not on file Not on file Travel End Travel History Travel Start No recent travel history available. Last Filed Vital Signs Not on file Plan of Treatment Health Maintenance Due Date Last Done Comments INFLUENZA VACCINE 08/02/2018 Results Not on fileafter 02/27/2018 Insurance Payer Benefit Subscriber ID Type Phone Address Plan / Group BLUE CROSS/[employer]UE [employer] BCBS PPO xxxxxxxxxxxx PPO [phone] [id number] [place] [address] CHOICE [id number] [facility] (Home) [place] [id number]
[2019-02-28 09:25] VITALS: BP 120/82
--- NOTE | 2019-02-28 14:24 | Operative Report ---
DATE OF PROCEDURE: 02/28/2019 SURGEON: Drake Blum MD PROCEDURE: Esophagogastroduodenoscopy with biopsies. INDICATIONS FOR PROCEDURE: Upper abdominal pain, nausea and vomiting. Retained food on recent EGD. Procedure is being repeated for optimal visualization of the stomach. MEDICATIONS: The patient was done under MAC, please see anesthesiologist's note. PROCEDURE IN DETAIL: With the patient in left lateral decubitus position, flexible fiberoptic Olympus gastroscope was introduced into the esophagus under direct visualization without any difficulty. A submucosal nodule was noted in the cervical esophagus and biopsies were obtained. There was some patchy erythema noted in distal esophagus. The scope was then advanced with ease into the stomach and the patient is status post Ehsan-en-Y. Anastomosis was intact. Efferent loop was patent. Biopsies were obtained to rule out sprue. There were some atrophic changes noted in the gastric stump. Biopsies were obtained to rule out atrophic gastritis. The scope was then retroflexed in the gastric stump and the mucosa overlying the fundus revealed similar somewhat atrophic changes. The cardia appeared to be within normal limits. The scope was then straightened out, it was subsequently withdrawn. The patient tolerated the procedure well. IMPRESSION: 1. Submucosal nodule, cervical esophagus, biopsied. 2. Status post Ehsan-en-Y anastomosis intact. 3. Rule out atrophic gastritis, gastric stump. 4. Rule out sprue. PLAN: Follow up histology. Check celiac panel. Continue PPI and Carafate therapy. Drake Blum MD [facility] [place] /[id number] cc: Anthony Blum MD
[2019-03-03 05:12] LABS: ENDOMYSIAL ANTIBODIES, IGA Negative (Negative)
== END | disposition home or self-care (01) ==
LOC: OR 05:58
PROVIDERS: ATTEND Internal Medicine Gastroenterology
DX: K29.50 Unspecified chronic gastritis without bleeding (principal); K21.0 Gastro-esophageal reflux disease with esophagitis; R10.10 Upper abdominal pain, unspecified; R11.2 Nausea with vomiting, unspecified; Z98.84 Bariatric surgery status; E03.8 Other specified hypothyroidism; J45.909 Unspecified asthma, uncomplicated; I10 Essential (primary) hypertension; F41.9 Anxiety disorder, unspecified; Z88.1 Allergy status to other antibiotic agents; Z88.2 Allergy status to sulfonamides; Z88.8 Allergy status to other drugs, medicaments and biological substances
CPT/HCPCS: 43239; 82784; 83516; 86256; J0131; J2001; J2250; J2704

== ENCOUNTER 2024-02-21 12:32 | Inpatient (IN) | payer BC ==
[~2024-02-21] VITALS: Ht 160 cm; Wt 55.3 kg
[~2024-02-21 12:32] MED LIST changes: -ACETAMINOPHEN 1000 MG/100 ML 100 ML IV ONE; +BRILINTA90 MG PO; -FENTANYL CITRATE/PF 100MCG/2 ML INJ ONE; -LIDOCAINE HCL 2% LOCAL INJ 5 ML SDV VIAL INJ ONE; -MIDAZOLAM HCL 2 MG/2 ML VIAL ONE; -PROPOFOL IV EMULSION 10 MG/ML 50 ML VIAL ONE; +XOPENEX0.63 MG/3 INH; +[UNRECOGNIZED DRUG - OTHER] TD
[2024-02-21 13:21] LABS: BASOPHILS # (AUTO) 0.1 (0.0-0.1); BASOPHILS % 0.5 % (0.0-1.0); EOSINOPHILS % 0.2 % (0.0-6.0); HEMATOCRIT 48.7 % (34.2-44.1); HEMOGLOBIN 16.8 g/dL (12.0-16.0); LYMPHOCYTES # (AUTO) 2.5 (1.0-3.2); LYMPHOCYTES % 20.6 % (18.0-39.1); MEAN CORPUSCULAR HEMOGLOBIN 30.5 pg (28-32); MEAN CORPUSCULAR HGB CONC 34.5 g/dL (31-35); MEAN CORPUSCULAR VOLUME 88.5 fL (81-99); MONOCYTES # (AUTO) 0.9 (0.2-0.8); MONOCYTES % 7.5 % (4.4-11.3); NEUTROPHILS # (AUTO) 8.6 (2.1-6.9); PLATELET COUNT 448 x10e3/uL (140-360); RED CELL DISTRIBUTION WIDTH 14.3 % (11.7-14.4); WHITE BLOOD COUNT 12.15 x10e3/uL (4.8-10.8)
[2024-02-21 13:26] LABS: CLARITY,URINE HAZY (CLEAR); COLOR,URINE YELLOW (YELLOW); LEUKOCYTE ESTERASE ,URINE NEGATIVE (NEGATIVE); PH,URINE 6 (5 - 7)
[2024-02-21 13:27] LABS: AMPHETAMINES SCREEN,URINE NEGATIVE (NEGATIVE); BENZODIAZEPINES SCREEN,URINE NEGATIVE (NEGATIVE); BILIRUBIN,URINE LARGE (NEGATIVE); CANNABINOIDS SCREEN,URINE NEGATIVE (NEGATIVE); GLUCOSE, URINE NEGATIVE (NEGATIVE); KETONES,URINE 2+ (NEGATIVE); METHADONE SCREEN, URINE POSITIVE (NEGATIVE); NITRITE,URINE NEGATIVE (NEGATIVE); OPIATES SCREEN,URINE NEGATIVE (NEGATIVE); PHENCYCLIDINE SCREEN,URINE NEGATIVE (NEGATIVE); PROTEIN,URINE DIPSTICK 2+ (NEGATIVE); URINE UROBILINOGEN 1 mg/dL (0.2 - 1)
[2024-02-21 13:28] LABS: INR 0.89; PROTHROMBIN TIME 12.7 seconds (11.9-14.5)
[2024-02-21 13:37] LABS: BACTERIA,URINE MANY /HPF; EPITHELIAL CELLS,URINE FEW /LPF; RBC,URINE 0-5 /HPF (0-5)
[2024-02-21 13:38] LABS: ALANINE AMINOTRANSFERASE 21 IU/L (0-55); ALBUMIN 5.1 g/dL (3.5-5.0); ALBUMIN/GLOBULIN RATIO 1.3 (0.8-2.0); ALKALINE PHOSPHATASE 113 IU/L (40-150); BILIRUBIN,TOTAL 0.9 mg/dL (0.2-1.2); BLOOD UREA NITROGEN 14 mg/dL (7-26); BUN/CREATININE RATIO 21 (6-25); CARBON DIOXIDE 28 mmol/L (22-29); CHLORIDE 93 mmol/L (98-107); CREATINE KINASE 34 IU/L (29-168); CREATININE, SERUM 0.66 mg/dL (0.57-1.11); EST GLOMERULAR FILTRATION RATE 113 ML/MIN (>=60); GLUCOSE 109 mg/dL (74-118); SODIUM 142 mmol/L (136-145); TOTAL PROTEIN 9.1 g/dL (6.5-8.1)
[2024-02-21 13:41] LABS: CALCIUM 10.4 mg/dL (8.4-10.2)
[2024-02-21 13:43] LABS: MAGNESIUM 2.1 MG/DL (1.3-2.1)
[2024-02-21 13:46] LABS: TROPONIN I < 0.001 ng/mL (0-0.300)
[2024-02-21 13:48] LABS: ACETAMINOPHEN < 3.0 ug/mL (10-30); ETHANOL < 10.0 mg/dL (0.0-10.0); SALICYLATE < 5.0 mg/dL (0-30)
[2024-02-21 13:55] LABS: INFLUENZAE A&B ANTIGEN (RAPID) NEGATIVE (NEGATIVE)
[2024-02-21 13:56] LABS: RESPIRATORY SYNC. VIRUS NEGATIVE (NEGATIVE)
[2024-02-21] MEDS ORDERED: DIPHENHYDRAMINE HCL INJ 50 MG/ML VIAL ONE (15:38)
[2024-02-21] MEDS ORDERED: SODIUM CHLORIDE 0.9% 1000ML 2,000 ML ONE (15:39)
[2024-02-21] MEDS ORDERED: CEFTRIAXONE 1 GM VIAL ONE (15:39)
[2024-02-21] MEDS ORDERED: PROMETHAZINE 12.5MG/ NACL 0.9% 50 ML ONE ×2 (15:39→19:40)
[2024-02-21] MEDS: SODIUM CHLORIDE 0.9% 1000ML 1,000 ML IV SCH ×3 (15:44→19:52)
[2024-02-21] MEDS: PROMETHAZINE 12.5MG/ NACL 0.9% 12.5 MG/50 ML BAG IV ONE (15:46)
[2024-02-21] MEDS: DIPHENHYDRAMINE HCL INJ 50 MG/ML VIAL IV ONE (15:53)
[2024-02-21] MEDS ORDERED: PROMETHAZINE HCL (IM) 25 MG/ML VIAL IM PRN (16:00)
[2024-02-21] MEDS: FAMOTIDINE 20 MG/2 ML VIAL IV SCH (16:15)
[2024-02-21] MEDS ORDERED: HYDROMORPHONE 1MG/1ML INJ ONE (16:15)
[2024-02-21] MEDS ORDERED: FAMOTIDINE 20 MG/2 ML VIAL IV ONE (16:16)
[2024-02-21] MEDS: HYDROMORPHONE 1MG/1ML INJ IV STA (16:20)
[2024-02-21 17:56] VITALS: BP 156/93; PULSE 101; RESP 17; TEMP 98.2; O2SAT 99
[2024-02-21] MEDS ORDERED: IOPAMIDOL 370 MG/ML 100 ML INFUS..BTL INJ ONE (18:34)
[2024-02-21] MEDS ORDERED: SODIUM CHLORIDE 0.9% 1000ML 1,000 ML ONE (19:37)
[2024-02-21] MEDS ORDERED: Morphine 4mg INJECTION 4 MG/ML INJ ONE (19:39)
[2024-02-21] MEDS: Morphine 4mg INJECTION 4 MG/ML INJ IV PRN (19:54)
[2024-02-21 20:00] VITALS: BP 153/81; PULSE 85; RESP 18; TEMP 98.2; O2SAT 96
[2024-02-21] MEDS ORDERED: PREGABALIN50 MG PO (20:22)
[2024-02-21] MEDS ORDERED: BACLOFEN10 MG PO (20:22)
[2024-02-21] MEDS ORDERED: ROSUVASTATIN CA10 MG PO (20:22)
[2024-02-21] MEDS ORDERED: TRAZODONE HCL50 MG PO (20:22)
[2024-02-21] MEDS ORDERED: BUSPIRONE HCL7.5 MG PO (20:22)
[2024-02-21] MEDS ORDERED: DODEX1000 MCG/1 (20:22)
[2024-02-21 20:25] VITALS: BP 153/81; PULSE 85; RESP 18; TEMP 98.2; O2SAT 96
[2024-02-21] MEDS ORDERED: BUPRENORPHINE1 EAC3 (20:32)
[2024-02-21] MEDS: PROMETHAZINE 12.5MG/ NACL 0.9% 12.5 MG/50 ML BAG IV PRN (20:42)
[2024-02-22] VITALS (9 sets, daily range): BP systolic 109–141; BP diastolic 59–85; PULSE 61–99; RESP 16–18; TEMP 97.6–98.4; O2SAT 96–100
[2024-02-22] MEDS ORDERED: CEFTRIAXONE 1 GM VIAL ONE ×2 (00:26→10:28)
[2024-02-22] MEDS ORDERED: Morphine 4mg INJECTION 4 MG/ML INJ ONE ×2 (00:27→10:28)
[2024-02-22] MEDS ORDERED: SODIUM CHLORIDE 0.9% 1000ML 1,000 ML ONE (00:28)
[2024-02-22] MEDS ORDERED: PROMETHAZINE 12.5MG/ NACL 0.9% 50 ML ONE (00:30)
[2024-02-22 05:37] LABS: BASOPHILS # (AUTO) 0.1 (0.0-0.1); BASOPHILS % 0.8 % (0.0-1.0); EOSINOPHILS # (AUTO) 0.1 (0.0-0.4); EOSINOPHILS % 0.7 % (0.0-6.0); HEMATOCRIT 36.7 % (34.2-44.1); HEMOGLOBIN 12.8 g/dL (12.0-16.0); LYMPHOCYTES # (AUTO) 3.4 (1.0-3.2); LYMPHOCYTES % 31.1 % (18.0-39.1); MEAN CORPUSCULAR HEMOGLOBIN 30.8 pg (28-32); MEAN CORPUSCULAR HGB CONC 34.9 g/dL (31-35); MEAN CORPUSCULAR VOLUME 88.4 fL (81-99); MONOCYTES # (AUTO) 1.2 (0.2-0.8); MONOCYTES % 10.6 % (4.4-11.3); NEUTROPHILS # (AUTO) 6.2 (2.1-6.9); NEUTROPHILS % 56.5 % (38.7-80.0); PLATELET COUNT 361 x10e3/uL (140-360); RED BLOOD COUNT 4.15 x10e6/uL (3.6-5.1); RED CELL DISTRIBUTION WIDTH 13.9 % (11.7-14.4); WHITE BLOOD COUNT 10.95 x10e3/uL (4.8-10.8)
[2024-02-22 06:21] LABS: ALBUMIN 3.8 g/dL (3.5-5.0); ALBUMIN/GLOBULIN RATIO 1.3 (0.8-2.0); ANION GAP 18.6 mmol/L (8-16); BILIRUBIN,TOTAL 0.5 mg/dL (0.2-1.2); CALCIUM 8.2 mg/dL (8.4-10.2); CHOL/HDL RATIO 5.5 (3.0-3.6); CREATININE, SERUM 0.55 mg/dL (0.57-1.11); TOTAL PROTEIN 6.8 g/dL (6.5-8.1)
[2024-02-22 06:29] LABS: POTASSIUM 2.6 mmol/L (3.5-5.1)
[2024-02-22 06:46] LABS: TROPONIN I 0.003 ng/mL (0-0.300)
[2024-02-22 06:57] LABS: MAGNESIUM 1.5 MG/DL (1.3-2.1)
[2024-02-22] MEDS: PROMETHAZINE 12.5MG/ NACL 0.9% 12.5 MG/50 ML BAG IV SCH (08:42)
[2024-02-22 10:20] LABS: LYMPHOCYTES % (MANUAL) 33 % (19-48); MONOCYTES % (MANUAL) 14 % (3.4-9.0); NEUTROPHILS % (MANUAL) 53 % (40-74)
[2024-02-22 10:21] LABS: PLATELET ESTIMATE ADEQUATE; PLATELET MORPHOLOGY COMMENT FEW LARGE; RBC MORPHOLOGY COMMENT NORMAL
[2024-02-22] MEDS ORDERED: PROMETHAZINE 12.5MG/ NACL 0.9% 12.5 MG/50 ML BAG ONE (10:28)
[2024-02-22] MEDS ORDERED: SODIUM CHLORIDE 0.9% 1000 ML BAG ONE (10:28)
[2024-02-22] MEDS ORDERED: Sodium Chloride 0.9% 50ML Bag ONE (10:28)
[2024-02-22] MEDS ORDERED: FAMOTIDINE 20 MG/2 ML VIAL IV ONE (10:28)
[2024-02-22] MEDS ORDERED: NON-FORMULARY MEDICATION ([Phenergan] 25 MG) PO PRN (11:00)
[2024-02-22] MEDS ORDERED: LEVALBUTEROL HCL SOLN NEBU 0.63 MG/3 ML NEB INH PRN (11:00)
[2024-02-22] MEDS ORDERED: PROMETHAZINE HCL 25 MG TAB PO PRN (11:30)
[2024-02-22] MEDS: KCL 40MEQ/0.9% SOD CHL 1,000 ML IV SCH (13:02)
[2024-02-22] MEDS: MAGNESIUM SULFATE 2GM/50ML 50 ML IV ONE (13:03)
[2024-02-22] MEDS: BACLOFEN 10 MG TAB PO SCH (13:03)
[2024-02-22] MEDS: DICYCLOMINE HCL 20 MG TAB PO SCH (13:03)
[2024-02-22] MEDS ORDERED: NON-FORMULARY MEDICATION (Buspirone Hcl 7.5 MG) PO SCH (15:00)
[2024-02-22 15:47] LABS: TROPONIN I 0.001 ng/mL (0-0.300)
[2024-02-22] MEDS ORDERED: ACETAMINOPHEN 325 MG TAB PO PRN (16:00)
[2024-02-22] MEDS ORDERED: HYDRALAZINE HCL 20 MG/ML VIAL IV PRN (16:00)
[2024-02-22] MEDS: MAGNESIUM SULF 1GRAM/DEXTROSE 100 ML IV ONE (16:19)
[2024-02-22] MEDS: METOPROLOL SUCCINATE 50 MG TAB XL PO SCH (17:33)
[2024-02-22] MEDS: BUSPIRONE HCL 5 MG TAB PO SCH (17:33)
[2024-02-22] MEDS: LEVOTHYROXINE SODIUM 100 MCG/VIAL IV ONE ×2 (17:37)
[2024-02-22] MEDS: CRESTOR 10MG PO SCH (21:12)
[2024-02-22] MEDS: TRAZODONE HCL 50 MG TAB PO SCH (21:13)
[2024-02-22] MEDS: PREGABALIN 50 MG CAP PO SCH (21:15)
[2024-02-22] MEDS: ACETAMIN/BUTALBITAL/CAFFEINE TAB PO PRN (23:59)
[2024-02-23] VITALS (9 sets, daily range): BP systolic 0–158; BP diastolic 0–91; PULSE 71–111; RESP 17–20; TEMP 97.6–98.3; O2SAT 96–100
[2024-02-23 05:29] LABS: BASOPHILS # (AUTO) 0.1 (0.0-0.1); BASOPHILS % 1.1 % (0.0-1.0); EOSINOPHILS # (AUTO) 0.2 (0.0-0.4); EOSINOPHILS % 1.8 % (0.0-6.0); HEMATOCRIT 37.5 % (34.2-44.1); HEMOGLOBIN 12.9 g/dL (12.0-16.0); LYMPHOCYTES # (AUTO) 2.8 (1.0-3.2); LYMPHOCYTES % 32.9 % (18.0-39.1); MEAN CORPUSCULAR HEMOGLOBIN 30.6 pg (28-32); MEAN CORPUSCULAR HGB CONC 34.4 g/dL (31-35); MEAN CORPUSCULAR VOLUME 89.1 fL (81-99); MONOCYTES % 12.2 % (4.4-11.3); NEUTROPHILS # (AUTO) 4.4 (2.1-6.9); NEUTROPHILS % 51.8 % (38.7-80.0); PLATELET COUNT 370 x10e3/uL (140-360); RED BLOOD COUNT 4.21 x10e6/uL (3.6-5.1); RED CELL DISTRIBUTION WIDTH 14.3 % (11.7-14.4)
[2024-02-23 05:52] LABS: ALANINE AMINOTRANSFERASE 15 IU/L (0-55); ALBUMIN 4.1 g/dL (3.5-5.0); ALBUMIN/GLOBULIN RATIO 1.4 (0.8-2.0); ALKALINE PHOSPHATASE 91 IU/L (40-150); ANION GAP 16.1 mmol/L (8-16); BILIRUBIN,TOTAL 0.4 mg/dL (0.2-1.2); BLOOD UREA NITROGEN < 5 mg/dL (7-26); CALCIUM 8.6 mg/dL (8.4-10.2); CARBON DIOXIDE 27 mmol/L (22-29); CHLORIDE 102 mmol/L (98-107); CREATININE, SERUM 0.53 mg/dL (0.57-1.11); EST GLOMERULAR FILTRATION RATE 119 ML/MIN (>=60); GLUCOSE 111 mg/dL (74-118); MAGNESIUM 2.1 MG/DL (1.3-2.1); SODIUM 142 mmol/L (136-145); TOTAL PROTEIN 7.1 g/dL (6.5-8.1)
[2024-02-23] MEDS: LEVOTHYROXINE SODIUM 100 MCG TAB PO SCH (05:54)
[2024-02-23 05:56] LABS: BUN/CREATININE RATIO 9 (6-25); POTASSIUM 3.1 mmol/L (3.5-5.1)
[2024-02-23] MEDS ORDERED: NON-FORMULARY MEDICATION (Rosuvastatin Calcium 10 MG) PO SCH (09:00)
[2024-02-23] MEDS ORDERED: ACETAMIN/BUTALBITAL/CAFFEINE TAB ONE ×2 (09:18→12:46)
[2024-02-23] MEDS ORDERED: BUSPIRONE HCL 5 MG TAB ONE ×2 (09:18→12:46)
[2024-02-23] MEDS ORDERED: Morphine 4mg INJECTION 4 MG/ML INJ ONE ×2 (09:18→12:46)
[2024-02-23] MEDS ORDERED: PROMETHAZINE 12.5MG/ NACL 0.9% 12.5 MG/50 ML BAG ONE ×2 (09:18→12:46)
[2024-02-23] MEDS ORDERED: CEFTRIAXONE 1 GM VIAL ONE ×2 (09:18→12:46)
[2024-02-23] MEDS ORDERED: LEVOTHYROXINE SODIUM 100 MCG TAB ONE ×2 (09:18→12:46)
[2024-02-23] MEDS ORDERED: DICYCLOMINE HCL 20 MG TAB ONE ×2 (09:18→12:46)
[2024-02-23] MEDS ORDERED: Sodium Chloride 0.9% 50ML Bag ONE ×2 (09:18→12:46)
[2024-02-23] MEDS ORDERED: FAMOTIDINE 20 MG/2 ML VIAL IV ONE ×2 (09:18→12:46)
[2024-02-23] MEDS ORDERED: CITRATE OF MAGNESIA 300ML BOTTLE ONE (09:18)
[2024-02-23] MEDS ORDERED: CYANOCOBALAMIN INJ 1,000 MCG/ML VIAL ONE ×2 (09:18→12:46)
[2024-02-23] MEDS ORDERED: METOPROLOL SUCCINATE 50 MG TAB XL ONE ×2 (09:18→12:46)
[2024-02-23] MEDS ORDERED: BACLOFEN 10 MG TAB ONE ×2 (09:18→12:46)
[2024-02-23] MEDS: CYANOCOBALAMIN INJ 1,000 MCG/ML VIAL IM SCH (10:36)
[2024-02-23] MEDS ORDERED: PROMETHAZINE HCL 25 MG TAB ONE (12:46)
[2024-02-23] MEDS ORDERED: TRAZODONE HCL 50 MG TAB ONE (12:46)
[2024-02-23] MEDS ORDERED: PREGABALIN 50 MG CAP ONE (12:46)
[2024-02-23] MEDS ORDERED: CRESTOR 10MG PO ONE (12:46)
[2024-02-23] MEDS ORDERED: DICYCLOMINE HCL 10 MG CAP ONE (12:46)
[2024-02-23] MEDS ORDERED: CEFTRIAXONE 2 GM VIAL ONE (12:46)
[2024-02-23] MEDS ORDERED: MULTIVITAMINS/MINERALS TAB ONE (12:46)
[2024-02-23] MEDS ORDERED: BUSPIRONE HCL 10 MG TABLET ONE (12:46)
[2024-02-23] MEDS: MULTIVITAMINS/MINERALS TAB PO SCH (21:16)
[2024-02-24] VITALS: BP 103/69; PULSE 86; RESP 20; TEMP 97.6; O2SAT 99
[2024-02-24 04:00] VITALS: BP 135/82; PULSE 74; RESP 20; TEMP 97.9; O2SAT 100
[2024-02-24 07:09] VITALS: PULSE 62; RESP 15; O2SAT 98
[2024-02-24 08:04] LABS: ANION GAP 14.1 mmol/L (8-16); BLOOD UREA NITROGEN < 5 mg/dL (7-26); CALCIUM 8.4 mg/dL (8.4-10.2); CARBON DIOXIDE 27 mmol/L (22-29); CHLORIDE 106 mmol/L (98-107); CREATININE, SERUM 0.54 mg/dL (0.57-1.11); EST GLOMERULAR FILTRATION RATE 119 ML/MIN (>=60); GLUCOSE 104 mg/dL (74-118); MAGNESIUM 1.8 MG/DL (1.3-2.1); POTASSIUM 4.1 mmol/L (3.5-5.1); SODIUM 143 mmol/L (136-145)
[2024-02-24 08:16] LABS: BUN/CREATININE RATIO 9 (6-25)
[2024-02-24 08:52] VITALS: BP 96/66; PULSE 82; RESP 18; TEMP 97.7; O2SAT 97
[2024-02-24 08:58] VITALS: BP 96/66; PULSE 82; RESP 18; TEMP 97.7; O2SAT 97
[2024-02-24] MEDS ORDERED: MULTI-VITAMIN1 EACH PO (10:59)
[2024-02-24] MEDS ORDERED: ACETAMINOPHEN325 M1 PO (10:59)
[2024-02-24] MEDS ORDERED: BUSPIRONE HCL7.5 MG PO (10:59)
[2024-02-24] MEDS ORDERED: CEFUROXIME250 MG PO (10:59)
[2024-02-24] MEDS ORDERED: LEVOTHYROXINE112 MCG PO (10:59)
[2024-02-24] MEDS ORDERED: FIORICET 50-301 EACH PO (10:59)
[2024-02-24] MEDS ORDERED: TRAZODONE HCL50 MG PO (10:59)
[2024-02-24] MEDS ORDERED: PROMETHAZINE HC25 M1 PO (10:59)
[2024-02-24] MEDS ORDERED: PANTOPRAZOLE SO40 MG PO (11:06)
[2024-02-24 11:57] VITALS: BP 98/71; PULSE 75; RESP 18; TEMP 98; O2SAT 98
[2024-02-24] MEDS ORDERED: KCL 40MEQ/0.9% SOD CHL 1,000 ML IV SCH (15:00)
== END 2024-02-24 12:16 | disposition home or self-care (01) | DRG 690 ==
LOC: ER 12:38 → ERHOLD 15:49 → MED/SURG3 18:07
PROVIDERS: ADMIT Internal Medicine; ATTEND Internal Medicine
PROC: 02HV33Z Insertion of Infusion Device into Superior Vena Cava, Percutaneous Approach (ICD-10-PCS; principal; 2024-02-21)
DX: N39.0 Urinary tract infection, site not specified (principal); Z94.81 Bone marrow transplant status; I50.32 Chronic diastolic (congestive) heart failure; J98.11 Atelectasis; E86.0 Dehydration; E03.9 Hypothyroidism, unspecified; I25.10 Atherosclerotic heart disease of native coronary artery without angina pectoris; D64.9 Anemia, unspecified; F41.8 Other specified anxiety disorders; Z88.1 Allergy status to other antibiotic agents; Z88.2 Allergy status to sulfonamides; Z88.8 Allergy status to other drugs, medicaments and biological substances; Z79.890 Hormone replacement therapy; Z90.3 Acquired absence of stomach [part of]; Z90.49 Acquired absence of other specified parts of digestive tract; R13.10 Dysphagia, unspecified; Z85.028 Personal history of other malignant neoplasm of stomach; Z85.71 Personal history of Hodgkin lymphoma; Z92.21 Personal history of antineoplastic chemotherapy; Z92.3 Personal history of irradiation; I70.0 Atherosclerosis of aorta; M79.671 Pain in right foot; I11.0 Hypertensive heart disease with heart failure; I35.8 Other nonrheumatic aortic valve disorders; Z79.891 Long term (current) use of opiate analgesic; Z83.49 Family history of other endocrine, nutritional and metabolic diseases; Z82.3 Family history of stroke; Z83.2 Family history of diseases of the blood and blood-forming organs and certain disorders involving the immune mechanism; Z82.49 Family history of ischemic heart disease and other diseases of the circulatory system; Z90.81 Acquired absence of spleen; G47.00 Insomnia, unspecified; M54.2 Cervicalgia; R51.9 Headache, unspecified; W01.190A Fall on same level from slipping, tripping and stumbling with subsequent striking against furniture, initial encounter; Y92.019 Unspecified place in single-family (private) house as the place of occurrence of the external cause; Z11.52 Encounter for screening for COVID-19; S09.90XA Unspecified injury of head, initial encounter; E87.6 Hypokalemia; E83.42 Hypomagnesemia; E78.5 Hyperlipidemia, unspecified; Z95.5 Presence of coronary angioplasty implant and graft
CPT/HCPCS: 36415; 36569; 70450; 71045; 72125; 74177; 80048; 80053; 80061; 80307; 80320; 80329; 81001; 82550; 83036; 83690; 83735; 83880; 84100; 84443; 84484; 84702; 85025; 85610; 85730; 87086; 87186; 87400; 87420; 93005; 93306; 94799; 99285; J0694; J0696; J1170; J1200; J2270; J2550; J3420; J7030; Q9967; U0002